=== PATIENT | male | born 1930 | race Caucasian/White ===

== ENCOUNTER 2019-06-03 14:52 | Inpatient (IN) | payer OTHER ==
--- NOTE | 2019-06-03 15:08 | ED Physician Documentation ---
PD HPI ABD PAIN - Stated complaint Stated Complaint: ABD PX - Chief complaint Chief Complaint: Abd Pain - History obtained from History obtained from: Patient - History of Present Illness Timing - onset: How many days ago (1-2) Timing - duration: Days (1-2) Timing - details: Gradual onset Quality: Cramping, Aching, Fullness/distended, Pain Location: All over / everywhere Radiation: Lower back. No: Chest, Upper back Improved by: No: Vomiting, Position Worsened by: Eating, Palpation. No: Breathing Associated symptoms: Nausea, Vomiting, Constipation, Loss of appetite. No: Fever, Diarrhea, Dysuria, Chest pain Similar symptoms before: Has not had sx before (He has had constipation in the past but no distention or belly pain like this associated with it before.) Review of Systems Constitutional: denies: Fever, Chills, Myalgias Nose: denies: Rhinorrhea / runny nose, Congestion Throat: denies: Sore throat Respiratory: denies: Cough GI: reports: Nausea, Vomiting (twice this morning), Constipation (for 7-10 days). denies: Diarrhea : denies: Dysuria, Frequency Neurologic: reports: Generalized weakness. denies: Focal weakness, Numbness, Near syncope, Altered mental status PD PAST MEDICAL HISTORY - Past Medical History Past Medical History: No Cardiovascular: None Respiratory: None Neuro: None Endocrine/Autoimmune: None GI: GERD - Present Medications Home Medications: Ambulatory Orders Medication Instructions Recorded Confirmed Alendronate [Fosamax] 1 tab UD 06/03/19 06/03/19 Aspirin Chewable [St Ravi 1 tab BID 06/03/19 06/03/19 Aspirin] Gabapentin 1 tab BID 06/03/19 06/03/19 Magnesium Hydroxide [Milk of 10 ml DAILY PRN 06/03/19 06/03/19 Magnesia] Omeprazole 1 tab DAILY 06/03/19 06/03/19 Senna [Senokot] 4 tab BID 06/03/19 06/03/19 Simvastatin [Zocor] 1 tab DAILY 06/03/19 06/03/19 Terazosin HCl 1 tab BID 06/03/19 06/03/19 - Allergies Allergies/Adverse Reactions: Allergies Allergy/AdvReac Type Severity Reaction Status Date / Time No Known Drug Allergies Allergy Verified 06/03/19 15:34 PD ED PE NORMAL - Vitals Vital signs reviewed: Yes - General General: Alert and oriented X 3, Well developed/nourished, Other (appears in pain, holding still. ) - HEENT HEENT: Pharynx benign - Neck Neck: Supple, no meningeal sign, No adenopathy - Cardiac Cardiac: RRR, No murmur - Respiratory Respiratory: Clear bilaterally - Abdomen Abdomen: No organomegaly, Other (Abdomen is generally distended with tenseness and hyperactive bowel sounds and some tympany to percussion. He is generally tender but more so in the lower abdomen. Rectal exam showed an empty vault.). No: Normal bowel sounds - Male Male : Other (normal genitalia) - Rectal Rectal: Other (empty vault) - Derm Derm: Normal color, Warm and dry - Extremities Extremities: No deformity, No tenderness to palpate - Neuro Neuro: Alert and oriented X 3, No motor deficit, Normal speech Results - Vitals Vitals: Vital Signs - 24 hr 06/03/19 06/03/19 06/03/19 15:01 15:26 15:40 Temperature 35.2 C L Heart Rate 52 L 69 43 L Respiratory 12 16 10 L Rate Blood Pressure 125/83 H 126/76 128/80 O2 Saturation 95 100 97 06/03/19 06/03/19 16:42 17:59 Temperature 36.4 C L Heart Rate 56 L 69 Respiratory 12 20 Rate Blood Pressure 132/76 H 157/80 H O2 Saturation 98 96 Oxygen O2 Source Nasal cannula - Labs Labs: Laboratory Tests 06/03/19 06/03/19 06/03/19 15:02 15:06 15:06 WBC 6.8 RBC 3.74 L Hgb 11.9 L Hct 34.8 L MCV 93.0 MCH 31.8 H MCHC 34.2 RDW 13.1 Plt Count 162 MPV 10.9 Neut # (Auto) 5.1 Lymph # (Auto) 1.3 L [place] # (Auto) 0.3 Eos # (Auto) 0.0 Baso # (Auto) 0.0 Absolute Nucleated RBC 0.00 Nucleated RBC % 0.0 Sodium 136 Potassium 3.0 L Chloride 98 L Carbon Dioxide 26 Anion Gap 12.0 BUN 15 Creatinine 0.9 Estimated GFR (MDRD) 80 L Glucose 165 H POC Whole Bld Glucose 176 H Lactic Acid Calcium 8.8 Magnesium 2.3 Total Bilirubin 0.9 AST 31 ALT 19 Alkaline Phosphatase 42 Total Protein 6.7 Albumin 4.2 Globulin 2.5 Albumin/Globulin Ratio 1.7 Lipase 18 L 06/03/19 15:06 WBC RBC Hgb Hct MCV MCH MCHC RDW Plt Count MPV Neut # (Auto) Lymph # (Auto) [place] # (Auto) Eos # (Auto) Baso # (Auto) Absolute Nucleated RBC Nucleated RBC % Sodium Potassium Chloride Carbon Dioxide Anion Gap BUN Creatinine Estimated GFR (MDRD) Glucose POC Whole Bld Glucose Lactic Acid 1.9 Calcium Magnesium Total Bilirubin AST ALT Alkaline Phosphatase Total Protein Albumin Globulin Albumin/Globulin Ratio Lipase - Rads (name of study) abd CT Radiology: Prelim report reviewed, Discussed with rads (Distended loop of bowel consistent with a sigmoid volvulus. There is significant amount of stool as well.), See rad report PD MEDICAL DECISION MAKING - ED course Complexity details: reviewed results, considered differential, d/w patient, d/w retail consultant (Dr. Painter, general surgery, who will see pt in the ER. ) Departure - Departure Disposition: 66 [facility] DC/Xfer Clinical Impression: Sigmoid volvulus, Hypokalemia Abdominal pain Qualifiers: Abdominal location: generalized Qualified Code(s): R10.84 - Generalized abdominal pain Condition: Stable Record reviewed to determine appropriate education?: Yes
[2019-06-03] MEDS ORDERED: MORPHINE 10 MG/ML VIAL IVP STA (15:27)
[2019-06-03] MEDS ORDERED: SODIUM CHLORIDE 0.9% 1,000 ML IV ONE ×2 (15:27→17:24)
[2019-06-03] MEDS ORDERED: ACETAMINOPHEN 1,000 MG/100 ML 100 ML IV STA (15:31)
[2019-06-03] MEDS ORDERED: IOVERSOL 320 100 ML VIAL IVP ONE ×2 (15:34→16:43)
[2019-06-03] MEDS: ONDANSETRON 4 MG/2 ML VIAL IVP STA ×2 (15:36→18:57)
[2019-06-03 15:38] LABS: BASOPHILS % (AUTO) 0.3 %; EOSINOPHILS % (AUTO) 0.6 %; HGB - HEMOGLOBIN 11.9 g/dL (14.0-18.0); LYMPHOCYTES # (AUTO) 1.3 10^3/uL (1.5-3.5); LYMPHOCYTES % (AUTO) 18.7 %; MEAN CORPUSCULAR HEMOGLOBIN 31.8 pg (27.0-31.0); MEAN CORPUSCULAR HGB CONC 34.2 g/dL (32.0-36.0); MEAN PLATELET VOLUME 10.9 fL (7.4-11.4); MONOCYTES # (AUTO) 0.3 10^3/uL (0.0-1.0); MONOCYTES % (AUTO) 4.6 %; NEUTROPHILS # (AUTO) 5.1 10^3/uL (1.5-6.6); NEUTROPHILS % (AUTO) 75.2 %; PLT - PLATELET COUNT 162 10^3/uL (130-450); RED BLOOD COUNT 3.74 10^6/uL (4.70-6.10); RED CELL DISTRIBUTION WIDTH 13.1 % (12.0-15.0); WHITE BLOOD COUNT 6.8 x10^3/uL (4.8-10.8)
[2019-06-03 15:48] LABS: ALBUMIN 4.2 g/dL (3.2-5.5); ALBUMIN/GLOBULIN RATIO 1.7 (1.0-2.2); BILIRUBIN,TOTAL 0.9 mg/dL (0.2-1.0); CALCIUM 8.8 mg/dL (8.5-10.3); CREATININE 0.9 mg/dL (0.6-1.2); MAGNESIUM 2.3 mg/dL (1.7-2.8); TOTAL PROTEIN 6.7 g/dL (6.7-8.2)
--- NOTE | 2019-06-03 17:21 | CT Report ---
Reason: abd pain and distension for few days Procedure Date: 06/03/2019 Accession Number: [id number] / [id number] Procedure: CT - Abdomen/Pelvis W CPT Code: Final Report FULL RESULT: EXAM: CT ABDOMEN AND PELVIS EXAM DATE: 06/03/2019 04:40 PM. CLINICAL HISTORY: Abdomen pain and distention for a few days. COMPARISONS: None. TECHNIQUE: Routine helical CT imaging was performed through the abdomen and pelvis. IV contrast: OPTIRAY 320. Enteric contrast: No. Reconstructions: Coronal and sagittal. In accordance with CT protocol optimization, one or more of the following dose reduction techniques were utilized for this exam: automated exposure control, adjustment of mA and/or KV based on patient size, or use of iterative reconstructive technique. FINDINGS: Lung bases: A small of fluid is seen in the distal esophagus. Liver: No focal liver lesions are seen. Gallbladder: Unremarkable. Bile ducts: Unremarkable. Pancreas: Moderate diffuse atrophy. Spleen: Unremarkable. Adrenals: Unremarkable. Kidneys: Left posterior renal cyst measures 7.2 cm. A couple of small hypodensities left kidney probably renal cysts. 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 Small right upper pole renal cyst. No hydronephrosis. Bowel: Sigmoid volvulus. Redundant gas-filled dilated sigmoid extending up into the upper abdomen dilated to 8.8 cm and there is a moderate amount of adjacent stranding. No definite wall thickening or pneumatosis is seen. Transition from dilated to decompressed colon is seen on axial image 62 where there is a mild swirled pattern. Moderate to large amount of stool is seen in the left side of the colon and transverse colon. Small free fluid in the pelvis. No evidence for free air. No evidence for bowel perforation. Presacral edema. No dilated small bowel loops. Pelvis: Mild lobular contour of the prostate. Metallic prostate seed implants. No acute vascular findings are seen. The superior mesenteric artery appears patent. Ectatic suprarenal abdominal aorta measuring 2.9 cm. IMPRESSION: 1. Sigmoid volvulus. Moderate amount of stranding adjacent to the sigmoid colon, could represent signs of colon and mesenteric ischemia versus congestion. No definite colonic wall thickening or pneumatosis is seen. No free air is seen. Small free fluid in the pelvis. Moderate to large amount of stool in the colon on the left side and in the transverse colon. 2. Presacral edema. See the remaining exam findings as above. RADIA The critical result notification system was initiated by Dr. Lyndsay Muller at 05:10 PM on 06/03/2019. The above critical result findings were discussed with [facility] [place] by Dr. Lyndsay Muller at 05:14 PM on 06/03/2019.
[2019-06-03] MEDS ORDERED: MORPHINE 2 MG/ML CARPUJECT IVP STA ×2 (17:24→18:44)
[2019-06-03] MEDS ORDERED: POTASSIUM CHLOR 10 MEQ/100 ML 10 MEQ/100 ML BAG IV ONE (18:46)
[2019-06-03] MEDS ORDERED: ONDANSETRON 4 MG/2 ML VIAL ONE (18:55)
[2019-06-03] MEDS ORDERED: ONDANSETRON 4 MG/2 ML VIAL IVP STA (19:13)
[2019-06-03] MEDS ORDERED: ceFAZolin 2 GM in SODIUM CHLORIDE 0.9% 100ML 100 ML IV STA (19:33)
[2019-06-03] MEDS ORDERED: LACTATED RINGERS 1,000 ML IV STA (19:40)
--- NOTE | 2019-06-03 19:40 | HISTORY & PHYSICAL EXAMINATION ---
Chief Complaint - Chief Complaint Chief Complaint: diffuse abdominal pain Abdominal Pain HPI - History Obtained From Records Reviewed: RN notes reviewed History obtained from: Patient, Family ( named Lea) Exam limitations: No limitations - History of Present Illness Severity at the worst: Moderate Pain Quality: Aching, Cramping Context-Pain started w/: Other (Patient reports 5 year heistory of progressive c onsitpation has been on a bowel regimine, but not uncommon to go 7-8 days without a bowel movement. This time it was 10 days and last 24 hours no gas and increasing bloating with increased pain) Timing: Gradual onset Duration: Days: (10) Improved with: Nothing Worsened by: Nothing Associated symptoms: Nausea, General Weakness PMH/PSH - Past Medical History Cardiovascular: positive: None Respiratory: positive: None Neuro: positive: None Endocrine/Autoimmune: positive: None GI: positive: GERD, Chronic constipation : positive: Benign prostate hypertrophy, Other (history of prostate cancer on hormone modulation therapy) HEENT: positive: Chronic hearing loss MRSA Hx?: No Other Past Medical History: Prostate CA Social & Family Hx - Living Situation Living Situation: With family - Social History Does the pt smoke?: No Smoking Status: Never smoker Does the pt drink ETOH?: Yes ETOH Use: Liquor - Family History Family History Comment/Other: non contributory Meds/Allgy - Home Medications Home Medications: Ambulatory Orders Medication Instructions Recorded Confirmed Alendronate [Fosamax] 1 tab UD 06/03/19 06/03/19 Aspirin Chewable [St Ravi 1 tab BID 06/03/19 06/03/19 Aspirin] Gabapentin 1 tab BID 06/03/19 06/03/19 Magnesium Hydroxide [Milk of 10 ml DAILY PRN 06/03/19 06/03/19 Magnesia] Omeprazole 1 tab DAILY 06/03/19 06/03/19 Senna [Senokot] 4 tab BID 06/03/19 06/03/19 Simvastatin [Zocor] 1 tab DAILY 06/03/19 06/03/19 Terazosin HCl 1 tab BID 06/03/19 06/03/19 - Allergies Allergies/Adverse Reactions: Allergies Allergy/AdvReac Type Severity Reaction Status Date / Time No Known Drug Allergies Allergy Verified 06/03/19 15:34 Review of Systems - Cardiovascular Cariovascular: denies: Irregular heart rate, Chest pain - Respiratory Respiratory: denies: Cough, Sputum production, Wheezing - Gastrointestinal Gastrointestinal: reports: Abdominal pain, Abdominal distention, Constipation, Nausea, Reflux/heartburn, Bloating - Genitourinary Genitourinary: reports: Frequency - Musculoskeletal Musculoskeletal: denies: Muscle pain - Integumentary Integumentary: denies: Rash - Neurological Neurological: reports: General weakness - All Other Systems All Other Systems: reports: Reviewed and negative Exam - Vital Signs Vital Signs: Vital Signs x48h Temp Pulse Resp BP Pulse Ox 06/03/19 17:59 69 20 157/80 H 96 06/03/19 16:42 36.4 C L 56 L 12 132/76 H 98 06/03/19 15:40 43 L 10 L 128/80 97 06/03/19 15:26 69 16 126/76 100 06/03/19 15:01 35.2 C L 52 L 12 125/83 H 95 - Physical Exam General Appearance: positive: Mild distress Eyes Bilateral: positive: Normal inspection Neck: positive: Nml inspection Cardiovascular: positive: Regular rate & rhythm Abdomen: positive: Tenderness, Guarding, Abnml bowel sounds, Other (markedly distended). negative: Rebound Skin: positive: Warm, Dry Extremities: positive: Non-tender Neurologic/Psychiatric: positive: Oriented x3 Results - Lab Results Fish Bones: 06/03/19 15:06 06/03/19 15:06 Other Lab Results: Lab Results x24hrs 06/03/19 06/03/19 06/03/19 Range/Units 15:06 15:06 15:06 WBC 6.8 (4.8-10.8) x10^3/uL RBC 3.74 L (4.70-6.10) 10^6/uL Hgb 11.9 L (14.0-18.0) g/dL Hct 34.8 L (42.0-52.0) % MCV 93.0 (80.0-94.0) fL MCH 31.8 H (27.0-31.0) pg MCHC 34.2 (32.0-36.0) g/dL RDW 13.1 (12.0-15.0) % Plt Count 162 (130-450) 10^3/uL MPV 10.9 (7.4-11.4) fL Neut # (Auto) 5.1 (1.5-6.6) 10^3/uL Lymph # (Auto) 1.3 L (1.5-3.5) 10^3/uL [place] # (Auto) 0.3 (0.0-1.0) 10^3/uL Eos # (Auto) 0.0 (0.0-0.7) 10^3/uL Baso # (Auto) 0.0 (0.0-0.1) 10^3/uL Absolute Nucleated RBC 0.00 x10^3/uL Nucleated RBC % 0.0 /100WBC Sodium 136 (135-145) mmol/L Potassium 3.0 L (3.5-5.0) mmol/L Chloride 98 L (101-111) mmol/L Carbon Dioxide 26 (21-32) mmol/L Anion Gap 12.0 (6-13) BUN 15 (6-20) mg/dL Creatinine 0.9 (0.6-1.2) mg/dL Estimated GFR (MDRD) 80 L (>89) Glucose 165 H (70-100) mg/dL POC Whole Bld Glucose (70 - 100) mg/dL Lactic Acid 1.9 (0.5-2.2) mmol/L Calcium 8.8 (8.5-10.3) mg/dL Magnesium 2.3 (1.7-2.8) mg/dL Total Bilirubin 0.9 (0.2-1.0) mg/dL AST 31 (10-42) IU/L ALT 19 (10-60) IU/L Alkaline Phosphatase 42 (42-121) IU/L Total Protein 6.7 (6.7-8.2) g/dL Albumin 4.2 (3.2-5.5) g/dL Globulin 2.5 (2.1-4.2) g/dL Albumin/Globulin Ratio 1.7 (1.0-2.2) Lipase 18 L (22-51) U/L 03/25/20 Range/Units 15:02 WBC (4.8-10.8) x10^3/uL RBC (4.70-6.10) 10^6/uL Hgb (14.0-18.0) g/dL Hct (42.0-52.0) % MCV (80.0-94.0) fL MCH (27.0-31.0) pg MCHC (32.0-36.0) g/dL RDW (12.0-15.0) % Plt Count (130-450) 10^3/uL MPV (7.4-11.4) fL Neut # (Auto) (1.5-6.6) 10^3/uL Lymph # (Auto) (1.5-3.5) 10^3/uL [place] # (Auto) (0.0-1.0) 10^3/uL Eos # (Auto) (0.0-0.7) 10^3/uL Baso # (Auto) (0.0-0.1) 10^3/uL Absolute Nucleated RBC x10^3/uL Nucleated RBC % /100WBC Sodium (135-145) mmol/L Potassium (3.5-5.0) mmol/L Chloride (101-111) mmol/L Carbon Dioxide (21-32) mmol/L Anion Gap (6-13) BUN (6-20) mg/dL Creatinine (0.6-1.2) mg/dL Estimated GFR (MDRD) (>89) Glucose (70-100) mg/dL POC Whole Bld Glucose 176 H (70 - 100) mg/dL Lactic Acid (0.5-2.2) mmol/L Calcium (8.5-10.3) mg/dL Magnesium (1.7-2.8) mg/dL Total Bilirubin (0.2-1.0) mg/dL AST (10-42) IU/L ALT (10-60) IU/L Alkaline Phosphatase (42-121) IU/L Total Protein (6.7-8.2) g/dL Albumin (3.2-5.5) g/dL Globulin (2.1-4.2) g/dL Albumin/Globulin Ratio (1.0-2.2) Lipase (22-51) U/L - Diagnostic Imaging Results Diagnostic Imaging Results Comments: CT scan reviewed and discussed with radiologist agree with assessment of sigmoid volvulus with large amount of stool Impression/Plan - Problem List Problem List: 88 yo male with sigmoid volvulus. We discussed in detail and with drawings the normal anatomy and physiology and then we discussed the pathophysiology and possible etiologies of sigmoid volvulus. We discussed his radiologic and clinical findings and general treatment options. We discussed the lack of on site radiologist to attempt enema, we discussed transfer vrs proceeding with surgery. Colonoscopy and enema success is low especially given the extensive amount of stool present. After discussing theses options in detail and the risks, benefits, complications and success rates of each and discussing the surgery options in detail including possible open, possible need for resection, possible need for ostomy and re-operation, possible leak and anesthesia risk he has elected to proceed here with surgery. His questions and his Lea's questions (by phone) were addressed and answered to their satisfaction. They understand steps of surgical decision making will occur intra operative and they agree with this plan and he desires to proceed. Consent for exploratory laparoscopy possible open, possible colectomy, possible colostomy obtained. Core Measures - DVT/VTE - Prophylaxis VTE/DVT Device ordered at admit?: No
[2019-06-03 19:53] LABS: BILIRUBIN,URINE NEGATIVE (NEGATIVE); GLUCOSE, URINE (UA) NEGATIVE (NEGATIVE); KETONES,URINE (UA) 15 mg/dL (NEGATIVE); LEUKOCYTE ESTERASE, URINE NEGATIVE (NEGATIVE); NITRITE,URINE NEGATIVE (NEGATIVE); OCCULT BLOOD,URINE NEGATIVE (NEGATIVE); PH,URINE 7.5 PH (5.0-7.5); PROTEIN,URINE NEGATIVE (NEGATIVE); UROBILINOGEN,URINE 0.2 (NORMAL) E.U./dL (NORMAL)
[2019-06-03 19:54] LABS: CLARITY,URINE CLEAR (CLEAR)
[2019-06-03] MEDS ORDERED: metroNIDAZOLE 500 MG/100 ML 500 MG/100 ML BAG IV SCH ×2 (20:00→23:45)
--- NOTE | 2019-06-03 20:02 | ANESTHESIA ---
Pre-Anesthesia VS, & Labs - Diagnosis sigmoid volvus - Procedure Laparoscopic sigmoidectomy Vital Signs: Temp Pulse Resp BP Pulse Ox 36.4 C L 69 20 157/80 H 96 06/03/19 16:42 06/03/19 17:59 06/03/19 17:59 06/03/19 17:59 06/03/19 17:59 Height 6 ft Weight (kg) 83.915 kg Body Mass Index 25.0 - NPO >8 hours - Lab Results Current Lab Results: Laboratory Tests 06/03/19 15:06: Lactic Acid 1.9 06/03/19 15:06: Sodium 136, Potassium 3.0 L, Chloride 98 L, Carbon Dioxide 26, Anion Gap 12.0, BUN 15, Creatinine 0.9, Estimated GFR (MDRD) 80 L, Glucose 165 H , Calcium 8.8, Magnesium 2.3, Total Bilirubin 0.9, AST 31, ALT 19, Alkaline Phosphatase 42, Total Protein 6.7, Albumin 4.2, Globulin 2.5, Albumin/Globulin Ratio 1.7, Lipase 18 L 06/03/19 15:06: WBC 6.8, RBC 3.74 L, Hgb 11.9 L, Hct 34.8 L, MCV 93.0, MCH 31.8 H, MCHC 34.2, RDW 13.1, Plt Count 162, MPV 10.9, Neut # (Auto) 5.1, Lymph # (Auto) 1.3 L, [place] # (Auto) 0.3, Eos # (Auto) 0.0, Baso # (Auto) 0.0, Absolute Nucleated RBC 0.00, Nucleated RBC % 0.0 06/03/19 15:02: POC Whole Bld Glucose 176 H Lab results reviewed: Yes Fish Bones: 06/03/19 15:06 06/03/19 15:06 Home Medications and Allergies Home Medications: Ambulatory Orders Alendronate [Fosamax] 1 tab UD 06/03/19 Aspirin Chewable [St Ravi Aspirin] 1 tab BID 06/03/19 Gabapentin 1 tab BID 06/03/19 Magnesium Hydroxide [Milk of Magnesia] 10 ml DAILY PRN 06/03/19 Omeprazole 1 tab DAILY 06/03/19 Senna [Senokot] 4 tab BID 06/03/19 Simvastatin [Zocor] 1 tab DAILY 06/03/19 Terazosin HCl 1 tab BID 06/03/19 Active Medications Cefazolin Sodium 2 gm/ Sodium (Chloride) 100 mls @ 200 mls/hr IV ONCE STA Stop: 06/03/19 20:02 Last Admin: 06/03/19 19:43 Dose: 200 mls/hr Metronidazole (Flagyl 500 Mg/100 Ml) 500 mg in 100 mls @ 100 mls/hr IV Q8H CHRISTIAN Alendronate [Fosamax] 1 tab UD 06/03/19 Aspirin Chewable [St Ravi Aspirin] 1 tab BID 06/03/19 Gabapentin 1 tab BID 06/03/19 Magnesium Hydroxide [Milk of Magnesia] 10 ml DAILY PRN 06/03/19 Omeprazole 1 tab DAILY 06/03/19 Senna [Senokot] 4 tab BID 06/03/19 Simvastatin [Zocor] 1 tab DAILY 06/03/19 Terazosin HCl 1 tab BID 06/03/19 Allergies/Adverse Reactions: Allergies Allergy/AdvReac Type Severity Reaction Status Date / Time No Known Drug Allergies Allergy Verified 06/03/19 15:34 Anes History & Medical History - Anesthetic History Anesthesia Complications: reports: No previous complications Family history of Anesthesia Complications: Denies Family history of Malignant Hyperthermia: Denies - Medical History Cardiovascular: reports: None Pulmonary: reports: None Gastrointestinal: reports: GERD, Chronic constipation Urinary: reports: Benign prostate hypertrophy, Other (history of prostate cancer on hormone modulation therapy) Neuro: reports: None Musculoskeletal: reports: None Endocrine/Autoimmune: reports: None Blood Disorders: reports: None Skin: reports: None Smoking Status: Never smoker Psychosocial: reports: No issues indicated Other Past Medical History: Prostate CA - Surgical History General: Other (hernia repair) Results - EKG Results EKG Comparison: Reviewed EKG Exam General: Alert, Oriented x3, Cooperative, No acute distress Dental: Dentures full Upper, Dentures full Lower Mouth Openin Fingerbreadth Mallampati classification: II Thyromental Distance: 4-6 cm Respiratory: Lungs clear, Normal breath sounds, No respiratory distress, No accessory muscle use Cardiovascular: Regular rate, Normal S1, Normal S2 Mental/Cognitive Status: Alert/Oriented X3, Normal for patient Plan Anesthesia Type: General Consent for Procedure(s) Verified and Reviewed: Yes Code Status: Attempt Resuscitation ASA classification: 2-Mild systemic disease Is this case an emergency?: Yes
[2019-06-03] MEDS ORDERED: LIDOCAINE 1%-EPI 1:100000 20 ML MDV ONE (20:16)
[2019-06-03] MEDS ORDERED: SUCCINYLCHOLINE 200 MG/10 ML VIAL IVP ONE (20:32)
[2019-06-03] MEDS ORDERED: LACTATED RINGERS 1,000 ML IV ONE ×2 (20:32→21:59)
[2019-06-03] MEDS ORDERED: fentaNYL 250 MCG/5 ML VIAL IVP ONE (20:32)
[2019-06-03] MEDS ORDERED: GLYCOPYRROLATE 1 MG/5 ML VIAL IVP ONE (20:32)
[2019-06-03] MEDS ORDERED: ONDANSETRON 4 MG/2 ML VIAL IVP ONE (20:32)
[2019-06-03] MEDS ORDERED: ROCURONIUM 50 MG/5 ML VIAL IVP ONE (20:32)
[2019-06-03] MEDS ORDERED: ePHEDrine 50 MG/ML VIAL IVP ONE (20:32)
[2019-06-03] MEDS ORDERED: PROPOFOL 200 MG/20 ML VIAL IVP ONE (20:32)
[2019-06-03] MEDS ORDERED: LIDOCAINE 1%-EPI 1:100000 20 ML MDV SUBQ ONE (21:03)
[2019-06-03] MEDS ORDERED: SUGAMMADEX 200 MG/2 ML VIAL IVP ONE (21:59)
[2019-06-03] MEDS ORDERED: ACETAMINOPHEN 1,000 MG/100 ML 100 ML IV ONE (23:19)
--- NOTE | 2019-06-03 23:28 | OPERATIVE REPORT ---
Operative Report - General Procedure Date: 06/03/19 Pre-Op Diagnosis: sigmoid volvulus Procedure Performed: exploratory laparoscopy, conversion to laparotomy, sigmoidectomy with end colostomy Post Op Diagnosis: same - Procedure Note Primary Surgeon: Georgia Painter MD Anesthesia Technique: General ET tube Pathology: sigmoid colon IV Fluids (mL): 1,450 Estimated Blood Loss (mL): 100 Urine Output (mL): 550 Indications: Patient is a very pleasant 88 yo with acute colon obstruction due to sigmoid volvulus on CT scan Findings: markedly dilated distal colon to 15 cm therefore elected to preform Bhakta's procedure and leave end colostomy Complications: none - Other Other Information/Narrative: The patient was taken back to the operating room and placed in the supine position. He was placed under anesthesia and a graves catheter was placed. He was then prepped and draped in a sterile fashion. A formal timeout was held according to hospital regulations. Local anesthesia was infused in the infraumbilical space and vertical incision was made. Dissection with s retractors down the the fascia was done. The fascia was incised with 15 blade and the peritoneum was entered bluntly with finger dissection. 12 mm port was then inserted and pneumo peritoneum was created and the abdomen inspected. A long large and markedly dilated portion of the sigmoid colon was visualized and it was immediately evident that resection would be required and given the level of dilation I elected to convert to open. The vertical incision was extended in the midline in the usual fashion. The sigmoid colon was brought out through the incisions and the volvulus was released. No signs of stragulation were present but the distal portion remained markedly dilated. Proximally there was a large amount of stool. A healthy portion on the proximal side was identified and a window was created in the mesentery near the bowel wall. The bowel was dived with a YARA stapler. The mesentery was sequential divided using clamp clamp cut tie technique distally removing the redundant colon which was about 24 inches. The bowel was unable to be decompressed easily distally, no mass or obstruction was palpated, but given the level of mismatch in an 88 yo I felt it was safest to preformed a bhakta's and the distal transaction with a YARA stapler was done at the level of the sacral prominence. The remaining mesentery was transected and the specimen was removed without spillage. The abdomen was irrigated and hemostasis was confirmed. The proximal bowel was inspected and a site for the colostomy was chosen. A 1.5 cm circular skin resection with underlying fat was removed down to the fascia. A ccruciate incision of the anterior fascia was created the muscled was retracted and the posterior fascial was incised. The proximal end was brought out through the site and anchored to the anterior abdominal wall with 3-0 vicryl sutures. Seprafilm was then placed underlying the incision and into the pelvis. THe midline incision was closed with O- PDS looped running from inferior to superior and the skin was closed with 4-0 monocryl running. The wound was cleaned and dried and sterile dressing was placed. The ostomy secured to the anterior fascia and then was opened by cutting away the suture line and secured to the skin in the usual fashion. Ostomy bag was placed over the site. THe draped were removed and the patient was awaken and extubated in the OR and transferred to recovery without complication. All sponge, sharp and instrument counts were correct.
[2019-06-03] MEDS ORDERED: ceFAZolin 2 GM in SODIUM CHLORIDE 0.9% 100ML 100 ML IV SCH (23:45)
[2019-06-04] MEDS: LACTATED RINGERS 1,000 ML IV SCH ×2 (00:33→06:19)
[2019-06-04] MEDS: SODIUM CHLORIDE FLUSH 0.9% 10 ML SYRINGE IVP PRN ×4 (00:35→12:10)
[2019-06-04] MEDS: PHENOL THROAT SPRAY 177 ML MM PRN ×5 (01:59→13:09)
[2019-06-04] MEDS: HYDROmorphone 0.5 MG/0.5 ML SYRINGE IVP PRN ×5 (02:01→12:10)
[2019-06-04] MEDS: ceFAZolin 2 GM in SODIUM CHLORIDE 0.9% 100ML 100 ML IV SCH ×2 (04:09→12:10)
[2019-06-04] MEDS: metroNIDAZOLE 500 MG/100 ML 500 MG/100 ML BAG IV SCH ×2 (05:21→13:10)
[2019-06-04] MEDS: PANTOPRAZOLE 40 MG VIAL IVP SCH (06:14)
[2019-06-04] MEDS: ENOXAPARIN 40 MG/0.4 ML SYRINGE SUBQ SCH (08:22)
[2019-06-04 08:39] LABS: ALBUMIN 3.4 g/dL (3.2-5.5); ALBUMIN/GLOBULIN RATIO 1.6 (1.0-2.2); BILIRUBIN,TOTAL 0.9 mg/dL (0.2-1.0); CALCIUM 7.9 mg/dL (8.5-10.3); CREATININE 0.7 mg/dL (0.6-1.2); MAGNESIUM 2.2 mg/dL (1.7-2.8); PHOSPHORUS 4.3 mg/dL (2.5-4.6); TOTAL PROTEIN 5.5 g/dL (6.7-8.2)
[2019-06-04 08:40] LABS: BASOPHILS % (AUTO) 0.3 %; EOSINOPHILS # (AUTO) 0.3 10^3/uL (0.0-0.7); EOSINOPHILS % (AUTO) 2.8 %; HGB - HEMOGLOBIN 11.4 g/dL (14.0-18.0); LYMPHOCYTES # (AUTO) 0.9 10^3/uL (1.5-3.5); LYMPHOCYTES % (AUTO) 9.4 %; MEAN CORPUSCULAR HEMOGLOBIN 32.4 pg (27.0-31.0); MEAN CORPUSCULAR HGB CONC 34.2 g/dL (32.0-36.0); MEAN CORPUSCULAR VOLUME 94.6 fL (80.0-94.0); MEAN PLATELET VOLUME 10.7 fL (7.4-11.4); MONOCYTES # (AUTO) 0.4 10^3/uL (0.0-1.0); NEUTROPHILS # (AUTO) 8.2 10^3/uL (1.5-6.6); NEUTROPHILS % (AUTO) 83.2 %; PLT - PLATELET COUNT 156 10^3/uL (130-450); RED BLOOD COUNT 3.52 10^6/uL (4.70-6.10); RED CELL DISTRIBUTION WIDTH 13.5 % (12.0-15.0); WHITE BLOOD COUNT 9.9 x10^3/uL (4.8-10.8)
--- NOTE | 2019-06-04 10:34 | PHARMACY PROGRESS NOTE ---
- Best Possible Medication History Admit Date and Time: 06/03/191922 Processed by: Nursing Medication History completed: Yes Corrected med list to reflect mg instead of # of tabs; med list completed by nursing As the person ultimately responsible for medication therapy, providers are able to order a medication from an existing home medication list in [facility] via the "Reconcile Routine" prior to Confirmation of that medication by client support representative. Such practice is discouraged except when the physician, in their clinical judgment, deems that a medical need exists for a medication without regard to previous use.
--- NOTE | 2019-06-04 11:28 | PROVIDER PROGRESS NOTE ---
Subjective - General Admit Date: 06/03/19 Procedure Date: 06/03/19 Post Op Days: 1 - Review of Systems Wound/Incisions: positive: Dressing dry and intact Drain Type: ostomy Approximate mls Output: NG tube- 900 cc fecal material output General: positive: Fatigue Pulmonary: positive: Cough (mild production will monitor) All Other Systems: positive: Reviewed and negative Objective - Patient Data Vital Signs: Vital Signs x48h Temp Pulse Resp BP Pulse Ox 06/04/19 08:39 36.6 C 68 18 107/52 L 95 06/04/19 05:18 36.7 C 74 17 117/59 L 98 Weight: Weight 06/02/19 06/03/19 06/04/19 23:59 23:59 23:59 Weight (kg) 83.915 kg 80.5 kg Intake & Output: Intake and Output Totals x24h 06/02/19 06/03/19 06/04/19 23:59 23:59 23:59 Intake Total 2300 603.333 Output Total 975 Balance 2300 -371.667 - Lab Results Lab Results: 06/04/19 08:14 06/04/19 08:14 Other Lab Results: Lab Results x24hrs 06/04/19 06/04/19 06/04/19 Range/Units 08:14 08:14 07:56 WBC 9.9 (4.8-10.8) x10^3/uL RBC 3.52 L (4.70-6.10) 10^6/uL Hgb 11.4 L (14.0-18.0) g/dL Hct 33.3 L (42.0-52.0) % MCV 94.6 H (80.0-94.0) fL MCH 32.4 H (27.0-31.0) pg MCHC 34.2 (32.0-36.0) g/dL RDW 13.5 (12.0-15.0) % Plt Count 156 (130-450) 10^3/uL MPV 10.7 (7.4-11.4) fL Neut # (Auto) 8.2 H (1.5-6.6) 10^3/uL Lymph # (Auto) 0.9 L (1.5-3.5) 10^3/uL [place] # (Auto) 0.4 (0.0-1.0) 10^3/uL Eos # (Auto) 0.3 (0.0-0.7) 10^3/uL Baso # (Auto) 0.0 (0.0-0.1) 10^3/uL Absolute Nucleated RBC 0.00 x10^3/uL Nucleated RBC % 0.0 /100WBC Sodium 135 (135-145) mmol/L Potassium 3.3 L (3.5-5.0) mmol/L Chloride 98 L (101-111) mmol/L Carbon Dioxide 27 (21-32) mmol/L Anion Gap 10.0 (6-13) BUN 14 (6-20) mg/dL Creatinine 0.7 (0.6-1.2) mg/dL Estimated GFR (MDRD) 107 (>89) Glucose 114 H (70-100) mg/dL POC Whole Bld Glucose 97 (70 - 100) mg/dL Lactic Acid (0.5-2.2) mmol/L Calcium 7.9 L (8.5-10.3) mg/dL Phosphorus 4.3 (2.5-4.6) mg/dL Magnesium 2.2 (1.7-2.8) mg/dL Total Bilirubin 0.9 (0.2-1.0) mg/dL AST 23 (10-42) IU/L ALT 17 (10-60) IU/L Alkaline Phosphatase 35 L (42-121) IU/L Total Protein 5.5 L (6.7-8.2) g/dL Albumin 3.4 (3.2-5.5) g/dL Globulin 2.1 (2.1-4.2) g/dL Albumin/Globulin Ratio 1.6 (1.0-2.2) Lipase (22-51) U/L Urine Color Urine Clarity (CLEAR) Urine pH (5.0-7.5) PH Ur Specific [place] (1.002-1.030) Urine Protein (NEGATIVE) mg/dL Urine Glucose (UA) (NEGATIVE) mg/dL Urine Ketones (NEGATIVE) mg/dL Urine Occult Blood (NEGATIVE) Urine Nitrite (NEGATIVE) Urine Bilirubin (NEGATIVE) Urine Urobilinogen (NORMAL) E.U./dL Ur Leukocyte Esterase (NEGATIVE) Ur Microscopic Review Urine Culture Comments 0306/03/19 06/03/19 Range/Units 19:35 15:06 15:06 WBC (4.8-10.8) x10^3/uL RBC (4.70-6.10) 10^6/uL Hgb (14.0-18.0) g/dL Hct (42.0-52.0) % MCV (80.0-94.0) fL MCH (27.0-31.0) pg MCHC (32.0-36.0) g/dL RDW (12.0-15.0) % Plt Count (130-450) 10^3/uL MPV (7.4-11.4) fL Neut # (Auto) (1.5-6.6) 10^3/uL Lymph # (Auto) (1.5-3.5) 10^3/uL [place] # (Auto) (0.0-1.0) 10^3/uL Eos # (Auto) (0.0-0.7) 10^3/uL Baso # (Auto) (0.0-0.1) 10^3/uL Absolute Nucleated RBC x10^3/uL Nucleated RBC % /100WBC Sodium 136 (135-145) mmol/L Potassium 3.0 L (3.5-5.0) mmol/L Chloride 98 L (101-111) mmol/L Carbon Dioxide 26 (21-32) mmol/L Anion Gap 12.0 (6-13) BUN 15 (6-20) mg/dL Creatinine 0.9 (0.6-1.2) mg/dL Estimated GFR (MDRD) 80 L (>89) Glucose 165 H (70-100) mg/dL POC Whole Bld Glucose (70 - 100) mg/dL Lactic Acid 1.9 (0.5-2.2) mmol/L Calcium 8.8 (8.5-10.3) mg/dL Phosphorus (2.5-4.6) mg/dL Magnesium 2.3 (1.7-2.8) mg/dL Total Bilirubin 0.9 (0.2-1.0) mg/dL AST 31 (10-42) IU/L ALT 19 (10-60) IU/L Alkaline Phosphatase 42 (42-121) IU/L Total Protein 6.7 (6.7-8.2) g/dL Albumin 4.2 (3.2-5.5) g/dL Globulin 2.5 (2.1-4.2) g/dL Albumin/Globulin Ratio 1.7 (1.0-2.2) Lipase 18 L (22-51) U/L Urine Color YELLOW Urine Clarity CLEAR (CLEAR) Urine pH 7.5 (5.0-7.5) PH Ur Specific [place] 1.010 (1.002-1.030) Urine Protein NEGATIVE (NEGATIVE) mg/dL Urine Glucose (UA) NEGATIVE (NEGATIVE) mg/dL Urine Ketones 15 H (NEGATIVE) mg/dL Urine Occult Blood NEGATIVE (NEGATIVE) Urine Nitrite NEGATIVE (NEGATIVE) Urine Bilirubin NEGATIVE (NEGATIVE) Urine Urobilinogen 0.2 (NORMAL) (NORMAL) E.U./dL Ur Leukocyte Esterase NEGATIVE (NEGATIVE) Ur Microscopic Review NOT INDICATED Urine Culture Comments NOT INDICATED 06/03/19 06/03/19 Range/Units 15:06 15:02 WBC 6.8 (4.8-10.8) x10^3/uL RBC 3.74 L (4.70-6.10) 10^6/uL Hgb 11.9 L (14.0-18.0) g/dL Hct 34.8 L (42.0-52.0) % MCV 93.0 (80.0-94.0) fL MCH 31.8 H (27.0-31.0) pg MCHC 34.2 (32.0-36.0) g/dL RDW 13.1 (12.0-15.0) % Plt Count 162 (130-450) 10^3/uL MPV 10.9 (7.4-11.4) fL Neut # (Auto) 5.1 (1.5-6.6) 10^3/uL Lymph # (Auto) 1.3 L (1.5-3.5) 10^3/uL [place] # (Auto) 0.3 (0.0-1.0) 10^3/uL Eos # (Auto) 0.0 (0.0-0.7) 10^3/uL Baso # (Auto) 0.0 (0.0-0.1) 10^3/uL Absolute Nucleated RBC 0.00 x10^3/uL Nucleated RBC % 0.0 /100WBC Sodium (135-145) mmol/L Potassium (3.5-5.0) mmol/L Chloride (101-111) mmol/L Carbon Dioxide (21-32) mmol/L Anion Gap (6-13) BUN (6-20) mg/dL Creatinine (0.6-1.2) mg/dL Estimated GFR (MDRD) (>89) Glucose (70-100) mg/dL POC Whole Bld Glucose 176 H (70 - 100) mg/dL Lactic Acid (0.5-2.2) mmol/L Calcium (8.5-10.3) mg/dL Phosphorus (2.5-4.6) mg/dL Magnesium (1.7-2.8) mg/dL Total Bilirubin (0.2-1.0) mg/dL AST (10-42) IU/L ALT (10-60) IU/L Alkaline Phosphatase (42-121) IU/L Total Protein (6.7-8.2) g/dL Albumin (3.2-5.5) g/dL Globulin (2.1-4.2) g/dL Albumin/Globulin Ratio (1.0-2.2) Lipase (22-51) U/L Urine Color Urine Clarity (CLEAR) Urine pH (5.0-7.5) PH Ur Specific [place] (1.002-1.030) Urine Protein (NEGATIVE) mg/dL Urine Glucose (UA) (NEGATIVE) mg/dL Urine Ketones (NEGATIVE) mg/dL Urine Occult Blood (NEGATIVE) Urine Nitrite (NEGATIVE) Urine Bilirubin (NEGATIVE) Urine Urobilinogen (NORMAL) E.U./dL Ur Leukocyte Esterase (NEGATIVE) Ur Microscopic Review Urine Culture Comments - Current Medications Current Medications: Current Medications Generic Name Dose Route Start Last Admin Trade Name Freq PRN Reason Stop Dose Admin Enoxaparin Sodium 40 mg 06/04/19 09:00 06/04/19 08:22 Lovenox SUBQ 40 mg DAILY CHRISTIAN Administration Hydromorphone HCl 0.5 mg 06/03/19 23:19 06/04/19 10:36 Dilaudid Inj Syringe IVP 0.5 mg Q2H PRN Administration PAIN Lactated Ringer's 1,000 mls @ 50 mls/hr 06/03/19 23:45 06/04/19 06:19 Lr IV 50 mls/hr .Q20H CHRISTIAN Administration Cefazolin Sodium 2 gm/ Sodium 100 mls @ 200 mls/hr 06/04/19 04:00 06/04/19 04:40 Chloride IV 06/04/19 12:29 Infused Q8H CHRISTIAN Infusion Metronidazole 500 mg in 100 mls @ 100 mls/hr 06/04/19 05:00 06/04/19 06:26 Flagyl 500 Mg/100 Ml IV 06/04/19 13:59 Infused Q8H CHRISTIAN Infusion Pantoprazole Sodium 40 mg 06/04/19 07:00 06/04/19 06:14 Protonix IVP 40 mg QDAC CHRISTIAN Administration Phenol/Menthol 1 sprays 06/03/19 23:19 06/04/19 10:44 Chloraseptic MM 1 sprays Q2H PRN Administration Mouth Sore Pain Sodium Chloride 10 ml 06/03/19 23:19 06/04/19 06:18 Normal Saline Flush 0.9% IVP 10 ml PRN PRN Administration NEEDED PER PROVIDER ORDERS - Physical Exam Wound/Incisions: positive: Dressing dry and intact General Appearance: positive: No acute distress Respiratory: positive: Breath sounds nml Cardiovascular: positive: Regular rate & rhythm Abdomen: positive: Tenderness (Mild post surgical tenderness, no R/G/R no BS ostomy is purple but appears viable at this time, no gas in bag incisions are covered) Impression/Plan - Problem List Problem List: post op day 1 s/p campos's for sigmoid volvulus Plan continue IVF, NPO, NG tube and await bowel function return\ d/c graves today and increase ambulation
[2019-06-04] MEDS: ONDANSETRON 4 MG/2 ML VIAL IVP PRN (13:10)
--- NOTE | 2019-06-04 16:38 | PROVIDER PROGRESS NOTE ---
Subjective - General Admit Date: 06/03/19 Procedure Date: 06/03/19 Post Op Days: 1 Procedure Performed: open campos's - Review of Systems Wound/Incisions: positive: Dressing dry and intact Drain Type: ostomy Approximate mls Output: NG tube- 900 cc fecal material output General: positive: Fatigue Pulmonary: positive: Cough (mild production will monitor) Gastrointestinal: positive: Abdominal pain (increased from this morning, more cramping. only asked for one dose of pain medication) All Other Systems: positive: Reviewed and negative Objective - Patient Data Vital Signs: Vital Signs x48h Temp Pulse Resp BP Pulse Ox 06/04/19 15:42 36.9 C 69 16 147/62 H 93 06/04/19 13:56 100/48 L 06/04/19 13:00 36.6 C 55 L 19 93/41 L 96 06/04/19 08:39 36.6 C 68 18 107/52 L 95 Weight: Weight 06/02/19 06/03/19 06/04/19 23:59 23:59 23:59 Weight (kg) 83.915 kg 80.5 kg Intake & Output: Intake and Output Totals x24h 06/02/19 06/03/19 06/04/19 23:59 23:59 23:59 Intake Total 2300 833.333 Output Total 1625 Balance 2300 -791.667 - Lab Results Lab Results: 06/04/19 08:14 06/04/19 08:14 Other Lab Results: Lab Results x24hrs 06/04/19 06/04/19 06/04/19 Range/Units 11:53 08:14 08:14 WBC 9.9 (4.8-10.8) x10^3/uL RBC 3.52 L (4.70-6.10) 10^6/uL Hgb 11.4 L (14.0-18.0) g/dL Hct 33.3 L (42.0-52.0) % MCV 94.6 H (80.0-94.0) fL MCH 32.4 H (27.0-31.0) pg MCHC 34.2 (32.0-36.0) g/dL RDW 13.5 (12.0-15.0) % Plt Count 156 (130-450) 10^3/uL MPV 10.7 (7.4-11.4) fL Neut # (Auto) 8.2 H (1.5-6.6) 10^3/uL Lymph # (Auto) 0.9 L (1.5-3.5) 10^3/uL [place] # (Auto) 0.4 (0.0-1.0) 10^3/uL Eos # (Auto) 0.3 (0.0-0.7) 10^3/uL Baso # (Auto) 0.0 (0.0-0.1) 10^3/uL Absolute Nucleated RBC 0.00 x10^3/uL Nucleated RBC % 0.0 /100WBC Sodium 135 (135-145) mmol/L Potassium 3.3 L (3.5-5.0) mmol/L Chloride 98 L (101-111) mmol/L Carbon Dioxide 27 (21-32) mmol/L Anion Gap 10.0 (6-13) BUN 14 (6-20) mg/dL Creatinine 0.7 (0.6-1.2) mg/dL Estimated GFR (MDRD) 107 (>89) Glucose 114 H (70-100) mg/dL POC Whole Bld Glucose 106 H (70 - 100) mg/dL Calcium 7.9 L (8.5-10.3) mg/dL Phosphorus 4.3 (2.5-4.6) mg/dL Magnesium 2.2 (1.7-2.8) mg/dL Total Bilirubin 0.9 (0.2-1.0) mg/dL AST 23 (10-42) IU/L ALT 17 (10-60) IU/L Alkaline Phosphatase 35 L (42-121) IU/L Total Protein 5.5 L (6.7-8.2) g/dL Albumin 3.4 (3.2-5.5) g/dL Globulin 2.1 (2.1-4.2) g/dL Albumin/Globulin Ratio 1.6 (1.0-2.2) Urine Color Urine Clarity (CLEAR) Urine pH (5.0-7.5) PH Ur Specific [place] (1.002-1.030) Urine Protein (NEGATIVE) mg/dL Urine Glucose (UA) (NEGATIVE) mg/dL Urine Ketones (NEGATIVE) mg/dL Urine Occult Blood (NEGATIVE) Urine Nitrite (NEGATIVE) Urine Bilirubin (NEGATIVE) Urine Urobilinogen (NORMAL) E.U./dL Ur Leukocyte Esterase (NEGATIVE) Ur Microscopic Review Urine Culture Comments 06/04/19 06/03/19 Range/Units 07:56 19:35 WBC (4.8-10.8) x10^3/uL RBC (4.70-6.10) 10^6/uL Hgb (14.0-18.0) g/dL Hct (42.0-52.0) % MCV (80.0-94.0) fL MCH (27.0-31.0) pg MCHC (32.0-36.0) g/dL RDW (12.0-15.0) % Plt Count (130-450) 10^3/uL MPV (7.4-11.4) fL Neut # (Auto) (1.5-6.6) 10^3/uL Lymph # (Auto) (1.5-3.5) 10^3/uL [place] # (Auto) (0.0-1.0) 10^3/uL Eos # (Auto) (0.0-0.7) 10^3/uL Baso # (Auto) (0.0-0.1) 10^3/uL Absolute Nucleated RBC x10^3/uL Nucleated RBC % /100WBC Sodium (135-145) mmol/L Potassium (3.5-5.0) mmol/L Chloride (101-111) mmol/L Carbon Dioxide (21-32) mmol/L Anion Gap (6-13) BUN (6-20) mg/dL Creatinine (0.6-1.2) mg/dL Estimated GFR (MDRD) (>89) Glucose (70-100) mg/dL POC Whole Bld Glucose 97 (70 - 100) mg/dL Calcium (8.5-10.3) mg/dL Phosphorus (2.5-4.6) mg/dL Magnesium (1.7-2.8) mg/dL Total Bilirubin (0.2-1.0) mg/dL AST (10-42) IU/L ALT (10-60) IU/L Alkaline Phosphatase (42-121) IU/L Total Protein (6.7-8.2) g/dL Albumin (3.2-5.5) g/dL Globulin (2.1-4.2) g/dL Albumin/Globulin Ratio (1.0-2.2) Urine Color YELLOW Urine Clarity CLEAR (CLEAR) Urine pH 7.5 (5.0-7.5) PH Ur Specific [place] 1.010 (1.002-1.030) Urine Protein NEGATIVE (NEGATIVE) mg/dL Urine Glucose (UA) NEGATIVE (NEGATIVE) mg/dL Urine Ketones 15 H (NEGATIVE) mg/dL Urine Occult Blood NEGATIVE (NEGATIVE) Urine Nitrite NEGATIVE (NEGATIVE) Urine Bilirubin NEGATIVE (NEGATIVE) Urine Urobilinogen 0.2 (NORMAL) (NORMAL) E.U./dL Ur Leukocyte Esterase NEGATIVE (NEGATIVE) Ur Microscopic Review NOT INDICATED Urine Culture Comments NOT INDICATED - Current Medications Current Medications: Current Medications Generic Name Dose Route Start Last Admin Trade Name Freq PRN Reason Stop Dose Admin Enoxaparin Sodium 40 mg 06/04/19 09:00 06/04/19 08:22 Lovenox SUBQ 40 mg DAILY CHRISTIAN Administration Hydromorphone HCl 0.5 mg 06/03/19 23:19 06/04/19 12:10 Dilaudid Inj Syringe IVP 0.5 mg Q2H PRN Administration PAIN Lactated Ringer's 1,000 mls @ 50 mls/hr 06/03/19 23:45 06/04/19 06:19 Lr IV 50 mls/hr .Q20H CHRISTIAN Administration Ondansetron HCl 4 mg 06/03/19 23:19 06/04/19 13:10 Zofran Inj IVP 4 mg Q6HR PRN Administration Nausea / Vomiting Pantoprazole Sodium 40 mg 06/04/19 07:00 06/04/19 06:14 Protonix IVP 40 mg QDAC CHRISTIAN Administration Phenol/Menthol 1 sprays 06/03/19 23:19 06/04/19 13:09 Chloraseptic MM 1 sprays Q2H PRN Administration Mouth Sore Pain Sodium Chloride 10 ml 06/03/19 23:19 06/04/19 12:10 Normal Saline Flush 0.9% IVP 10 ml PRN PRN Administration NEEDED PER PROVIDER ORDERS Impression/Plan - Problem List 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
[2019-06-04] MEDS ORDERED: MORPHINE 2 MG/ML CARPUJECT IVP ONE (17:10)
[2019-06-04] MEDS: MORPHINE PCA 50 MG IV PRN (18:12)
[2019-06-04] MEDS ORDERED: LACTATED RINGERS 500 ML IV ONE (22:29)
[2019-06-04] MEDS ORDERED: LACTATED RINGERS 1,000 ML IV SCH (23:00)
[2019-06-05 04:48] LABS: BASOPHILS % (AUTO) 0.3 %; EOSINOPHILS % (AUTO) 0.2 %; HGB - HEMOGLOBIN 10.9 g/dL (14.0-18.0); LYMPHOCYTES # (AUTO) 1.4 10^3/uL (1.5-3.5); LYMPHOCYTES % (AUTO) 14.9 %; MEAN CORPUSCULAR HEMOGLOBIN 30.8 pg (27.0-31.0); MEAN CORPUSCULAR HGB CONC 31.4 g/dL (32.0-36.0); MEAN PLATELET VOLUME 10.4 fL (7.4-11.4); MONOCYTES # (AUTO) 0.5 10^3/uL (0.0-1.0); MONOCYTES % (AUTO) 4.7 %; NEUTROPHILS # (AUTO) 7.7 10^3/uL (1.5-6.6); NEUTROPHILS % (AUTO) 79.6 %; PLT - PLATELET COUNT 154 10^3/uL (130-450); RED BLOOD COUNT 3.54 10^6/uL (4.70-6.10); RED CELL DISTRIBUTION WIDTH 14.1 % (12.0-15.0); WHITE BLOOD COUNT 9.6 x10^3/uL (4.8-10.8)
[2019-06-05 04:54] LABS: CALCIUM 8.1 mg/dL (8.5-10.3); CREATININE 0.8 mg/dL (0.6-1.2)
[2019-06-05] MEDS: PANTOPRAZOLE 40 MG VIAL IVP SCH (07:05)
[2019-06-05] MEDS ORDERED: LACTATED RINGERS 500 ML IV ONE (09:22)
--- NOTE | 2019-06-05 09:25 | PROVIDER PROGRESS NOTE ---
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 from last night no gas in ostomy) All Other Systems: positive: Reviewed and negative Objective - Patient Data Vital Signs: Vital Signs x48h Temp Pulse Resp BP Pulse Ox 06/05/19 08:32 37.1 C 72 18 146/61 H 97 06/05/19 07:02 16 06/05/19 06:01 67 18 134/58 H 93 06/05/19 03:30 87 119/57 L 95 06/05/19 02:00 12 06/05/19 01:30 74 127/58 L 97 Weight: Weight 06/03/19 06/04/19 06/05/19 23:59 23:59 23:59 Weight (kg) 83.915 kg 80.5 kg Intake & Output: Intake and Output Totals x24h 06/03/19 06/04/19 06/05/19 23:59 23:59 23:59 Intake Total 2300 1729.333 770.417 Output Total 1930 0 Balance 2300 -200.667 770.417 - Lab Results Lab Results: 06/05/19 04:15 06/05/19 04:15 Other Lab Results: Lab Results x24hrs 06/05/19 06/05/19 06/05/19 Range/Units 08:22 04:15 04:15 WBC 9.6 (4.8-10.8) x10^3/uL RBC 3.54 L (4.70-6.10) 10^6/uL Hgb 10.9 L (14.0-18.0) g/dL Hct 34.7 L (42.0-52.0) % MCV 98.0 H (80.0-94.0) fL MCH 30.8 (27.0-31.0) pg MCHC 31.4 L (32.0-36.0) g/dL RDW 14.1 (12.0-15.0) % Plt Count 154 (130-450) 10^3/uL MPV 10.4 (7.4-11.4) fL Neut # (Auto) 7.7 H (1.5-6.6) 10^3/uL Lymph # (Auto) 1.4 L (1.5-3.5) 10^3/uL [place] # (Auto) 0.5 (0.0-1.0) 10^3/uL Eos # (Auto) 0.0 (0.0-0.7) 10^3/uL Baso # (Auto) 0.0 (0.0-0.1) 10^3/uL Absolute Nucleated RBC 0.00 x10^3/uL Nucleated RBC % 0.0 /100WBC Sodium 138 (135-145) mmol/L Potassium 4.0 (3.5-5.0) mmol/L Chloride 98 L (101-111) mmol/L Carbon Dioxide 31 (21-32) mmol/L Anion Gap 9.0 (6-13) BUN 19 (6-20) mg/dL Creatinine 0.8 (0.6-1.2) mg/dL Estimated GFR (MDRD) 91 (>89) Glucose 115 H (70-100) mg/dL POC Whole Bld Glucose 92 (70 - 100) mg/dL Calcium 8.1 L (8.5-10.3) mg/dL 06/04/19 06/04/19 06/04/19 Range/Units 21:25 17:07 11:53 WBC (4.8-10.8) x10^3/uL RBC (4.70-6.10) 10^6/uL Hgb (14.0-18.0) g/dL Hct (42.0-52.0) % MCV (80.0-94.0) fL MCH (27.0-31.0) pg MCHC (32.0-36.0) g/dL RDW (12.0-15.0) % Plt Count (130-450) 10^3/uL MPV (7.4-11.4) fL Neut # (Auto) (1.5-6.6) 10^3/uL Lymph # (Auto) (1.5-3.5) 10^3/uL [place] # (Auto) (0.0-1.0) 10^3/uL Eos # (Auto) (0.0-0.7) 10^3/uL Baso # (Auto) (0.0-0.1) 10^3/uL Absolute Nucleated RBC x10^3/uL Nucleated RBC % /100WBC Sodium (135-145) mmol/L Potassium (3.5-5.0) mmol/L Chloride (101-111) mmol/L Carbon Dioxide (21-32) mmol/L Anion Gap (6-13) BUN (6-20) mg/dL Creatinine (0.6-1.2) mg/dL Estimated GFR (MDRD) (>89) Glucose (70-100) mg/dL POC Whole Bld Glucose 104 H 98 106 H (70 - 100) mg/dL Calcium (8.5-10.3) mg/dL - Current Medications Current Medications: Current Medications Generic Name Dose Route Start Last Admin Trade Name Freq PRN Reason Stop Dose Admin Enoxaparin Sodium 40 mg 06/04/19 09:00 06/04/19 08:22 Lovenox SUBQ 40 mg DAILY CHRISTIAN Administration Hydromorphone HCl 0.5 mg 06/03/19 23:19 06/04/19 12:10 Dilaudid Inj Syringe IVP 0.5 mg Q2H PRN Administration PAIN Morphine Sulfate/Sodium Chloride 0 mg 06/04/19 16:39 06/04/19 18:12 Morphine Pasta Maker (Use Pasta Maker Order Set) IV 50 mg PARK WORKER SUPERVISOR PRN Administration PAIN Protocol Ondansetron HCl 4 mg 06/03/19 23:19 06/04/19 13:10 Zofran Inj IVP 4 mg Q6HR PRN Administration Nausea / Vomiting Pantoprazole Sodium 40 mg 06/04/19 07:00 06/05/19 07:05 Protonix IVP 40 mg QDAC CHRISTIAN Administration Phenol/Menthol 1 sprays 06/03/19 23:19 06/04/19 13:09 Chloraseptic MM 1 sprays Q2H PRN Administration Mouth Sore Pain Sodium Chloride 10 ml 06/03/19 23:19 06/04/19 12:10 Normal Saline Flush 0.9% IVP 10 ml PRN PRN Administration NEEDED PER PROVIDER ORDERS - Physical Exam Wound/Incisions: positive: Dressing dry and intact Respiratory: positive: Breath sounds nml Cardiovascular: positive: Regular rate & rhythm Abdomen: positive: Other (NG in place starting to be more liquid but still has dark brown color to output. Abd has mild distention, mild tenderness, ostomy is very dusky, no output will need to follow closely) Impression/Plan - Problem List Problem List: POD #2 s/p campos's. No urine output since graves was removed so it was replaced. 500cc of dark urine, I/o imbalance will replace fluid imbalance, continue NG tube with large and dark output, i suspect this was a 10 day obstruction at home and will take time for this to resolve, continue NPO and bowel rest. Will have PT to increase ambulation. Patient understands this plan and is in agreeement with it.
[2019-06-05] MEDS: ENOXAPARIN 40 MG/0.4 ML SYRINGE SUBQ SCH (09:40)
[2019-06-05] MEDS: LACTATED RINGERS 1,000 ML IV SCH ×3 (09:40→17:04)
--- NOTE | 2019-06-05 17:40 | PROVIDER PROGRESS NOTE ---
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 it is unchanged from last night no gas in ostomy) Skin: positive: Rash (RN called pateint has new rash that is itchy) All Other Systems: positive: Reviewed and negative Objective - Patient Data Vital Signs: Vital Signs x48h Temp Pulse Pulse Resp BP BP Pulse Ox 06/05/19 16:13 36.7 C 69 18 150/62 H 96 06/05/19 13:04 36.9 C 75 20 171/73 H 96 06/05/19 11:10 75 125/53 L 06/05/19 11:00 75 125/53 L Weight: Weight 06/03/19 06/04/19 06/05/19 23:59 23:59 23:59 Weight (kg) 83.915 kg 80.5 kg Intake & Output: Intake and Output Totals x24h 06/03/19 06/04/19 06/05/19 23:59 23:59 23:59 Intake Total 2300 5664.328 6091.253 Output Total 1930 1275 Balance 2300 -265.049 3688.253 - Lab Results Lab Results: 06/05/19 04:15 06/05/19 04:15 Other Lab Results: Lab Results x24hrs 06/05/19 06/05/19 06/05/19 Range/Units 16:50 13:01 08:22 WBC (4.8-10.8) x10^3/uL RBC (4.70-6.10) 10^6/uL Hgb (14.0-18.0) g/dL Hct (42.0-52.0) % MCV (80.0-94.0) fL MCH (27.0-31.0) pg MCHC (32.0-36.0) g/dL RDW (12.0-15.0) % Plt Count (130-450) 10^3/uL MPV (7.4-11.4) fL Neut # (Auto) (1.5-6.6) 10^3/uL Lymph # (Auto) (1.5-3.5) 10^3/uL [place] # (Auto) (0.0-1.0) 10^3/uL Eos # (Auto) (0.0-0.7) 10^3/uL Baso # (Auto) (0.0-0.1) 10^3/uL Absolute Nucleated RBC x10^3/uL Nucleated RBC % /100WBC Sodium (135-145) mmol/L Potassium (3.5-5.0) mmol/L Chloride (101-111) mmol/L Carbon Dioxide (21-32) mmol/L Anion Gap (6-13) BUN (6-20) mg/dL Creatinine (0.6-1.2) mg/dL Estimated GFR (MDRD) (>89) Glucose (70-100) mg/dL POC Whole Bld Glucose 90 97 92 (70 - 100) mg/dL Calcium (8.5-10.3) mg/dL 06/05/19 06/05/19 06/04/19 Range/Units 04:15 04:15 21:25 WBC 9.6 (4.8-10.8) x10^3/uL RBC 3.54 L (4.70-6.10) 10^6/uL Hgb 10.9 L (14.0-18.0) g/dL Hct 34.7 L (42.0-52.0) % MCV 98.0 H (80.0-94.0) fL MCH 30.8 (27.0-31.0) pg MCHC 31.4 L (32.0-36.0) g/dL RDW 14.1 (12.0-15.0) % Plt Count 154 (130-450) 10^3/uL MPV 10.4 (7.4-11.4) fL Neut # (Auto) 7.7 H (1.5-6.6) 10^3/uL Lymph # (Auto) 1.4 L (1.5-3.5) 10^3/uL [place] # (Auto) 0.5 (0.0-1.0) 10^3/uL Eos # (Auto) 0.0 (0.0-0.7) 10^3/uL Baso # (Auto) 0.0 (0.0-0.1) 10^3/uL Absolute Nucleated RBC 0.00 x10^3/uL Nucleated RBC % 0.0 /100WBC Sodium 138 (135-145) mmol/L Potassium 4.0 (3.5-5.0) mmol/L Chloride 98 L (101-111) mmol/L Carbon Dioxide 31 (21-32) mmol/L Anion Gap 9.0 (6-13) BUN 19 (6-20) mg/dL Creatinine 0.8 (0.6-1.2) mg/dL Estimated GFR (MDRD) 91 (>89) Glucose 115 H (70-100) mg/dL POC Whole Bld Glucose 104 H (70 - 100) mg/dL Calcium 8.1 L (8.5-10.3) mg/dL - Current Medications Current Medications: Current Medications Generic Name Dose Route Start Last Admin Trade Name Freq PRN Reason Stop Dose Admin Enoxaparin Sodium 40 mg 06/04/19 09:00 06/05/19 09:40 Lovenox SUBQ 40 mg DAILY CHRISTIAN Administration Hydromorphone HCl 0.5 mg 06/03/19 23:19 06/04/19 12:10 Dilaudid Inj Syringe IVP 0.5 mg Q2H PRN Administration PAIN Lactated Ringer's 1,000 mls @ 125 mls/hr 06/05/19 17:00 06/05/19 17:04 Lr IV 125 mls/hr .Q8H CHRISTIAN Administration Morphine Sulfate/Sodium Chloride 0 mg 06/04/19 16:39 06/04/19 18:12 Morphine Plumber Cub (Use Plumber Cub Order Set) IV 50 mg [employer] PRN Administration PAIN Protocol Ondansetron HCl 4 mg 06/03/19 23:19 06/04/19 13:10 Zofran Inj IVP 4 mg Q6HR PRN Administration Nausea / Vomiting Pantoprazole Sodium 40 mg 06/04/19 07:00 06/05/19 07:05 Protonix IVP 40 mg QDAC CHRISTIAN Administration Phenol/Menthol 1 sprays 06/03/19 23:19 06/04/19 13:09 Chloraseptic MM 1 sprays Q2H PRN Administration Mouth Sore Pain Sodium Chloride 10 ml 06/03/19 23:19 06/04/19 12:10 Normal Saline Flush 0.9% IVP 10 ml PRN PRN Administration NEEDED PER PROVIDER ORDERS - Physical Exam General Appearance: positive: No acute distress Skin: positive: Skin rash (mild erythematous rash interior upper arms bilaterally and posterior knee, consistent with heat rash, no hives, no welts no SOB) Impression/Plan - Problem List Problem List: interium rash development appears more consistent with contact or heat rash as opposed to allegric rx. He states he has sensitive skin and has had this before. He uses lotion daily for it but doesn't have it here. Will start lotion to the area and Benadryl for itchiness and monitor for further development and change out laundry/gown. Discussed with patient and RN
[2019-06-05] MEDS: diphenhydrAMINE INJ 50 MG/ML VIAL IVP PRN (18:10)
[2019-06-05] MEDS: SODIUM CHLORIDE FLUSH 0.9% 10 ML SYRINGE IVP PRN (18:11)
[2019-06-05] MEDS: MORPHINE PCA 50 MG IV PRN (22:24)
[2019-06-06] MEDS: LACTATED RINGERS 1,000 ML IV SCH ×2 (01:02→08:35)
[2019-06-06 05:34] LABS: BASOPHILS % (AUTO) 0.2 %; EOSINOPHILS # (AUTO) 0.1 10^3/uL (0.0-0.7); EOSINOPHILS % (AUTO) 1.6 %; HGB - HEMOGLOBIN 10.5 g/dL (14.0-18.0); LYMPHOCYTES # (AUTO) 1.1 10^3/uL (1.5-3.5); LYMPHOCYTES % (AUTO) 13.1 %; MEAN CORPUSCULAR HEMOGLOBIN 31.5 pg (27.0-31.0); MEAN CORPUSCULAR HGB CONC 32.4 g/dL (32.0-36.0); MEAN CORPUSCULAR VOLUME 97.3 fL (80.0-94.0); MONOCYTES # (AUTO) 0.4 10^3/uL (0.0-1.0); MONOCYTES % (AUTO) 4.9 %; NEUTROPHILS # (AUTO) 6.6 10^3/uL (1.5-6.6); NEUTROPHILS % (AUTO) 79.8 %; PLT - PLATELET COUNT 145 10^3/uL (130-450); RED BLOOD COUNT 3.33 10^6/uL (4.70-6.10); RED CELL DISTRIBUTION WIDTH 13.6 % (12.0-15.0); WHITE BLOOD COUNT 8.3 x10^3/uL (4.8-10.8)
[2019-06-06 05:47] LABS: ALBUMIN 2.9 g/dL (3.2-5.5); ALBUMIN/GLOBULIN RATIO 1.3 (1.0-2.2); BILIRUBIN,TOTAL 1.5 mg/dL (0.2-1.0); CREATININE 0.6 mg/dL (0.6-1.2); TOTAL PROTEIN 5.2 g/dL (6.7-8.2)
[2019-06-06] MEDS: PANTOPRAZOLE 40 MG VIAL IVP SCH (06:43)
[2019-06-06] MEDS: ENOXAPARIN 40 MG/0.4 ML SYRINGE SUBQ SCH (08:33)
--- NOTE | 2019-06-06 10:31 | PROVIDER PROGRESS NOTE ---
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 feels like he is doing well) Skin: positive: Rash (RN called pateint has new rash that is itchy) All Other Systems: positive: Reviewed and negative Objective - Patient Data Vital Signs: Vital Signs x48h Temp Pulse Resp BP Pulse Ox 06/06/19 08:39 36.8 C 72 177/78 H 97 06/06/19 06:00 15 06/06/19 04:34 36.7 C 73 20 164/69 H 96 Weight: Weight 06/04/19 06/05/19 06/06/19 23:59 23:59 23:59 Weight (kg) 80.5 kg Intake & Output: Intake and Output Totals x24h 06/04/19 06/05/19 06/06/19 23:59 23:59 23:59 Intake Total 5593.565 8317.253 2023.75 Output Total 1930 1925 750 Balance -712.619 8036.253 1273.75 - Lab Results Lab Results: 06/06/19 04:45 06/06/19 04:45 Other Lab Results: Lab Results x24hrs 06/06/19 06/06/19 06/06/19 Range/Units 08:42 04:45 04:45 WBC 8.3 (4.8-10.8) x10^3/uL RBC 3.33 L (4.70-6.10) 10^6/uL Hgb 10.5 L (14.0-18.0) g/dL Hct 32.4 L (42.0-52.0) % MCV 97.3 H (80.0-94.0) fL MCH 31.5 H (27.0-31.0) pg MCHC 32.4 (32.0-36.0) g/dL RDW 13.6 (12.0-15.0) % Plt Count 145 (130-450) 10^3/uL MPV 11.0 (7.4-11.4) fL Neut # (Auto) 6.6 (1.5-6.6) 10^3/uL Lymph # (Auto) 1.1 L (1.5-3.5) 10^3/uL [place] # (Auto) 0.4 (0.0-1.0) 10^3/uL Eos # (Auto) 0.1 (0.0-0.7) 10^3/uL Baso # (Auto) 0.0 (0.0-0.1) 10^3/uL Absolute Nucleated RBC 0.00 x10^3/uL Nucleated RBC % 0.0 /100WBC Sodium 135 (135-145) mmol/L Potassium 3.1 L (3.5-5.0) mmol/L Chloride 100 L (101-111) mmol/L Carbon Dioxide 27 (21-32) mmol/L Anion Gap 8.0 (6-13) BUN 14 (6-20) mg/dL Creatinine 0.6 (0.6-1.2) mg/dL Estimated GFR (MDRD) 127 (>89) Glucose 98 (70-100) mg/dL POC Whole Bld Glucose 85 (70 - 100) mg/dL Calcium 8.0 L (8.5-10.3) mg/dL Total Bilirubin 1.5 H (0.2-1.0) mg/dL AST 21 (10-42) IU/L ALT 13 (10-60) IU/L Alkaline Phosphatase 36 L (42-121) IU/L Total Protein 5.2 L (6.7-8.2) g/dL Albumin 2.9 L (3.2-5.5) g/dL Globulin 2.3 (2.1-4.2) g/dL Albumin/Globulin Ratio 1.3 (1.0-2.2) 06/05/19 06/05/19 06/05/19 Range/Units 20:54 16:50 13:01 WBC (4.8-10.8) x10^3/uL RBC (4.70-6.10) 10^6/uL Hgb (14.0-18.0) g/dL Hct (42.0-52.0) % MCV (80.0-94.0) fL MCH (27.0-31.0) pg MCHC (32.0-36.0) g/dL RDW (12.0-15.0) % Plt Count (130-450) 10^3/uL MPV (7.4-11.4) fL Neut # (Auto) (1.5-6.6) 10^3/uL Lymph # (Auto) (1.5-3.5) 10^3/uL [place] # (Auto) (0.0-1.0) 10^3/uL Eos # (Auto) (0.0-0.7) 10^3/uL Baso # (Auto) (0.0-0.1) 10^3/uL Absolute Nucleated RBC x10^3/uL Nucleated RBC % /100WBC Sodium (135-145) mmol/L Potassium (3.5-5.0) mmol/L Chloride (101-111) mmol/L Carbon Dioxide (21-32) mmol/L Anion Gap (6-13) BUN (6-20) mg/dL Creatinine (0.6-1.2) mg/dL Estimated GFR (MDRD) (>89) Glucose (70-100) mg/dL POC Whole Bld Glucose 85 90 97 (70 - 100) mg/dL Calcium (8.5-10.3) mg/dL Total Bilirubin (0.2-1.0) mg/dL AST (10-42) IU/L ALT (10-60) IU/L Alkaline Phosphatase (42-121) IU/L Total Protein (6.7-8.2) g/dL Albumin (3.2-5.5) g/dL Globulin (2.1-4.2) g/dL Albumin/Globulin Ratio (1.0-2.2) - Current Medications Current Medications: Current Medications Generic Name Dose Route Start Last Admin Trade Name Freq PRN Reason Stop Dose Admin Diphenhydramine HCl 25 mg 06/05/19 17:36 06/05/19 18:10 Benadryl Inj IVP 25 mg Q6H PRN Administration Allergy Symptoms Enoxaparin Sodium 40 mg 06/04/19 09:00 06/06/19 08:33 Lovenox SUBQ 40 mg DAILY CHRISTIAN Administration Hydromorphone HCl 0.5 mg 06/03/19 23:19 06/04/19 12:10 Dilaudid Inj Syringe IVP 0.5 mg Q2H PRN Administration PAIN Morphine Sulfate/Sodium Chloride 0 mg 06/04/19 16:39 06/05/19 22:24 Morphine Clerical Transcriber (Use Clerical Transcriber Order Set) IV 50 mg CUSTOMER SERVICE REP PRN Administration PAIN Protocol Ondansetron HCl 4 mg 06/03/19 23:19 06/04/19 13:10 Zofran Inj IVP 4 mg Q6HR PRN Administration Nausea / Vomiting Pantoprazole Sodium 40 mg 06/04/19 07:00 06/06/19 06:43 Protonix IVP 40 mg QDAC CHRISTIAN Administration Phenol/Menthol 1 sprays 06/03/19 23:19 06/04/19 13:09 Chloraseptic MM 1 sprays Q2H PRN Administration Mouth Sore Pain Sodium Chloride 10 ml 06/03/19 23:19 06/05/19 18:11 Normal Saline Flush 0.9% IVP 10 ml PRN PRN Administration NEEDED PER PROVIDER ORDERS - Physical Exam Wound/Incisions: positive: Healing well, Erythema (mild erythema at the umbilical area) General Appearance: positive: No acute distress (sitting comfortably in bed states he feels well) Respiratory: positive: Breath sounds nml Cardiovascular: positive: Regular rate & rhythm Abdomen: positive: Other (mild distenstion, mild tenderness at incision, no R/G/R no BS, ostomy is dusky at skin level but remains intack, no air or stool in the bag) Skin: positive: Other (rash is slightly worse along the upper arms and inner thi ghs) Impression/Plan - Problem List Problem List: pod #3 s/p campos's procedure. HE is doing well, his ng output is starting to taper, his UPO is picked up dramatically, he feels clinically improved. Althought the ostomy is dusky it remains attached at the skin level. Plan to continue conservative care with NG NPO IVF and await bowel function return. Need to change IVF for electrolyte corrections and replace K. May consider starting mag citrate via his NG tube tomorrow, may also consider removing his graves tomorrow again. He understands this plan and is in agreement with it.
[2019-06-06] MEDS ORDERED: POTASSIUM CHLOR 10 MEQ/100 ML 10 MEQ/100 ML BAG IV ONE (11:00)
[2019-06-06] MEDS: NS W/40 MEQ KCL 1,000 ML IV SCH ×2 (11:21→21:53)
[2019-06-06] MEDS: diphenhydrAMINE INJ 50 MG/ML VIAL IVP PRN (17:14)
[2019-06-07 05:13] LABS: BASOPHILS % (AUTO) 0.2 %; EOSINOPHILS # (AUTO) 0.3 10^3/uL (0.0-0.7); EOSINOPHILS % (AUTO) 3.9 %; HGB - HEMOGLOBIN 10.6 g/dL (14.0-18.0); LYMPHOCYTES # (AUTO) 1.1 10^3/uL (1.5-3.5); LYMPHOCYTES % (AUTO) 17.3 %; MEAN CORPUSCULAR HEMOGLOBIN 30.7 pg (27.0-31.0); MEAN CORPUSCULAR HGB CONC 32.6 g/dL (32.0-36.0); MEAN CORPUSCULAR VOLUME 94.2 fL (80.0-94.0); MEAN PLATELET VOLUME 10.6 fL (7.4-11.4); MONOCYTES # (AUTO) 0.3 10^3/uL (0.0-1.0); MONOCYTES % (AUTO) 5.1 %; NEUTROPHILS # (AUTO) 4.7 10^3/uL (1.5-6.6); NEUTROPHILS % (AUTO) 73.2 %; PLT - PLATELET COUNT 157 10^3/uL (130-450); RED BLOOD COUNT 3.45 10^6/uL (4.70-6.10); RED CELL DISTRIBUTION WIDTH 13.2 % (12.0-15.0); WHITE BLOOD COUNT 6.5 x10^3/uL (4.8-10.8)
[2019-06-07 05:25] LABS: CALCIUM 7.8 mg/dL (8.5-10.3); CREATININE 0.6 mg/dL (0.6-1.2)
--- NOTE | 2019-06-07 06:40 | XRAY Report ---
Reason: ng tube placed Procedure Date: 06/07/2019 Accession Number: [id number] / [id number] Procedure: XR - Chest for Line Placement CPT Code: Final Report FULL RESULT: EXAM: CHEST RADIOGRAPHY EXAM DATE: 06/07/2019. CLINICAL HISTORY: Ng tube placed. COMPARISON: None. TECHNIQUE: 1 view. FINDINGS: Lungs/Pleura: Subsegmental atelectasis versus scarring at the lower lungs. No pleural effusion. No pneumothorax. Mediastinum: Within exam limitations, the cardiomediastinal contour is unremarkable. Other: None. IMPRESSION: Enteric tube tip is located in the left upper quadrant in the region of the stomach. RADIA
[2019-06-07] MEDS: NS W/40 MEQ KCL 1,000 ML IV SCH ×2 (08:01→18:27)
[2019-06-07] MEDS: PANTOPRAZOLE 40 MG VIAL IVP SCH (08:03)
[2019-06-07] MEDS: ENOXAPARIN 40 MG/0.4 ML SYRINGE SUBQ SCH (08:03)
--- NOTE | 2019-06-07 10:51 | PROVIDER PROGRESS NOTE ---
Subjective - General Admit Date: 06/03/19 Procedure Date: 06/03/19 Post Op Days: 4 Procedure Performed: open campos's - Review of Systems Wound/Incisions: positive: Healing well, Erythema (resolved erythema at the umbilical area now mild bruising) Drain Type: ostomy- dusky at skin level Approximate mls Output: NG tube- 200 cc output General: positive: No symptoms Pulmonary: positive: No symptoms Cardiovascular: positive: No symptoms Gastrointestinal: positive: Abdominal pain (less pain less bloating, feels good) Skin: positive: Rash (RN called bonnieeint has new rash that is itchy) All Other Systems: positive: Reviewed and negative Objective - Patient Data Vital Signs: Vital Signs x48h Temp Pulse Resp BP Pulse Ox 06/07/19 08:00 36.3 C L 64 18 149/70 H 96 06/07/19 05:00 14 06/07/19 04:02 36.7 C 68 18 168/73 H 96 Intake & Output: Intake and Output Totals x24h 06/05/19 06/06/19 06/07/19 23:59 23:59 23:59 Intake Total 3831.253 3632.080 1000 Output Total 1925 2300 1015 Balance 7949.705 2618.080 -15 - Lab Results Lab Results: 06/07/19 04:30 06/07/19 04:30 Other Lab Results: Lab Results x24hrs 06/07/19 06/07/19 06/06/19 Range/Units 04:30 04:30 20:13 WBC 6.5 (4.8-10.8) x10^3/uL RBC 3.45 L (4.70-6.10) 10^6/uL Hgb 10.6 L (14.0-18.0) g/dL Hct 32.5 L (42.0-52.0) % MCV 94.2 H (80.0-94.0) fL MCH 30.7 (27.0-31.0) pg MCHC 32.6 (32.0-36.0) g/dL RDW 13.2 (12.0-15.0) % Plt Count 157 (130-450) 10^3/uL MPV 10.6 (7.4-11.4) fL Neut # (Auto) 4.7 (1.5-6.6) 10^3/uL Lymph # (Auto) 1.1 L (1.5-3.5) 10^3/uL [place] # (Auto) 0.3 (0.0-1.0) 10^3/uL Eos # (Auto) 0.3 (0.0-0.7) 10^3/uL Baso # (Auto) 0.0 (0.0-0.1) 10^3/uL Absolute Nucleated RBC 0.00 x10^3/uL Nucleated RBC % 0.0 /100WBC Sodium 135 (135-145) mmol/L Potassium 3.3 L (3.5-5.0) mmol/L Chloride 104 (101-111) mmol/L Carbon Dioxide 22 (21-32) mmol/L Anion Gap 9.0 (6-13) BUN 13 (6-20) mg/dL Creatinine 0.6 (0.6-1.2) mg/dL Estimated GFR (MDRD) 127 (>89) Glucose 88 (70-100) mg/dL POC Whole Bld Glucose 77 (70 - 100) mg/dL Calcium 7.8 L (8.5-10.3) mg/dL Phosphorus 2.0 L (2.5-4.6) mg/dL Magnesium 2.0 (1.7-2.8) mg/dL 06/06/19 06/06/19 Range/Units 17:08 12:15 WBC (4.8-10.8) x10^3/uL RBC (4.70-6.10) 10^6/uL Hgb (14.0-18.0) g/dL Hct (42.0-52.0) % MCV (80.0-94.0) fL MCH (27.0-31.0) pg MCHC (32.0-36.0) g/dL RDW (12.0-15.0) % Plt Count (130-450) 10^3/uL MPV (7.4-11.4) fL Neut # (Auto) (1.5-6.6) 10^3/uL Lymph # (Auto) (1.5-3.5) 10^3/uL [place] # (Auto) (0.0-1.0) 10^3/uL Eos # (Auto) (0.0-0.7) 10^3/uL Baso # (Auto) (0.0-0.1) 10^3/uL Absolute Nucleated RBC x10^3/uL Nucleated RBC % /100WBC Sodium (135-145) mmol/L Potassium (3.5-5.0) mmol/L Chloride (101-111) mmol/L Carbon Dioxide (21-32) mmol/L Anion Gap (6-13) BUN (6-20) mg/dL Creatinine (0.6-1.2) mg/dL Estimated GFR (MDRD) (>89) Glucose (70-100) mg/dL POC Whole Bld Glucose 81 80 (70 - 100) mg/dL Calcium (8.5-10.3) mg/dL Phosphorus (2.5-4.6) mg/dL Magnesium (1.7-2.8) mg/dL - Current Medications Current Medications: Current Medications Generic Name Dose Route Start Last Admin Trade Name Freq PRN Reason Stop Dose Admin Diphenhydramine HCl 25 mg 06/05/19 17:36 06/06/19 17:14 Benadryl Inj IVP 25 mg Q6H PRN Administration Allergy Symptoms Enoxaparin Sodium 40 mg 06/04/19 09:00 06/07/19 08:03 Lovenox SUBQ 40 mg DAILY CHRISTIAN Administration Hydromorphone HCl 0.5 mg 06/03/19 23:19 06/04/19 12:10 Dilaudid Inj Syringe IVP 0.5 mg Q2H PRN Administration PAIN Potassium Chloride/Sodium Chloride 1,000 mls @ 100 mls/hr 06/06/19 12:00 06/07/19 08:01 Normal Saline 0.9% W/40 Meq Kcl IV 100 mls/hr .Q10H CHRISTIAN Administration Morphine Sulfate/Sodium Chloride 0 mg 06/04/19 16:39 06/05/19 22:24 Morphine Sock Knitting Machine Operator (Use Sock Knitting Machine Operator Order Set) IV 50 mg [place] PRN Administration PAIN Protocol Ondansetron HCl 4 mg 06/03/19 23:19 06/04/19 13:10 Zofran Inj IVP 4 mg Q6HR PRN Administration Nausea / Vomiting Pantoprazole Sodium 40 mg 06/04/19 07:00 06/07/19 08:03 Protonix IVP 40 mg QDAC CHRISTIAN Administration Phenol/Menthol 1 sprays 06/03/19 23:19 06/04/19 13:09 Chloraseptic MM 1 sprays Q2H PRN Administration Mouth Sore Pain Sodium Chloride 10 ml 06/03/19 23:19 06/05/19 18:11 Normal Saline Flush 0.9% IVP 10 ml PRN PRN Administration NEEDED PER PROVIDER ORDERS - Physical Exam Wound/Incisions: positive: Healing well, No drainage, Erythema improving General Appearance: positive: No acute distress Respiratory: positive: Breath sounds nml Cardiovascular: positive: Regular rate & rhythm Abdomen: positive: Other (less distended and very soft, BS present, ostomy inspected and finger dilated to below the facial level, patchy duskiness only at skin level remains intack to skin edge even with finger dilation) Impression/Plan - Problem List Problem List: POD #4 finger dilation done today, ostomy healthy and ready for use. Given the amount of stool in the colon at the time of surgery will need something to aid in bowel function return, will use the NG for mag citrate and monitor response. Once we see ostomy function we will be able to start oral intake. Continue to ambulate the halls
[2019-06-07] MEDS: MAGNESIUM CITRATE 296 ML BOTTLE PO PRN ×2 (11:15→15:30)
[2019-06-07] MEDS ORDERED: POTASSIUM CHLOR 10 MEQ/100 ML 10 MEQ/100 ML BAG IV SCH (14:00)
[2019-06-07] MEDS ORDERED: POTASSIUM PHOSPHATE 21 MMOL in SODIUM CHLORIDE 0.9% 250 ML IV ONE (14:30)
[2019-06-07] MEDS: SODIUM CHLORIDE FLUSH 0.9% 10 ML SYRINGE IVP PRN ×2 (15:32→21:11)
[2019-06-07] MEDS: diphenhydrAMINE INJ 50 MG/ML VIAL IVP PRN (21:11)
[2019-06-08] MEDS: ONDANSETRON 4 MG/2 ML VIAL IVP PRN ×2 (01:54→18:09)
[2019-06-08] MEDS: NS W/40 MEQ KCL 1,000 ML IV SCH (04:19)
[2019-06-08] MEDS: PANTOPRAZOLE 40 MG VIAL IVP SCH (06:22)
[2019-06-08] MEDS ORDERED: HYDROcod/ACETAM 5/325 MG TABLET PO PRN (10:03)
--- NOTE | 2019-06-08 10:13 | PROVIDER PROGRESS NOTE ---
Subjective - General Admit Date: 06/03/19 Procedure Date: 06/03/19 Post Op Days: 5 Procedure Performed: open campos's - Review of Systems Wound/Incisions: positive: Healing well, No drainage Drain Type: ostomy- patchy duskiness at skin level Approximate mls Output: NG tube- General: positive: No symptoms, Fatigue (tired this morning) Pulmonary: positive: No symptoms Cardiovascular: positive: No symptoms Gastrointestinal: positive: Abdominal pain (less pain less bloating, feels good gas coming out the ostomy, some belching) Genitourinary: positive: No symptoms, Other (able to urinate this am) Skin: positive: Rash (stable and unchanged) All Other Systems: positive: Reviewed and negative Objective - Patient Data Vital Signs: Vital Signs x48h Temp Pulse Resp BP Pulse Ox 06/08/19 06:25 16 06/08/19 06:22 36.4 C L 80 16 149/76 H 94 Intake & Output: Intake and Output Totals x24h 06/06/19 06/07/19 06/08/19 23:59 23:59 23:59 Intake Total 3632.080 2777 986.667 Output Total 2300 1970 325 Balance 1332.080 807 661.667 - Lab Results Lab Results: 06/07/19 04:30 06/07/19 04:30 Other Lab Results: Lab Results x24hrs 06/07/19 Range/Units 08:23 POC Whole Bld Glucose 84 (70 - 100) mg/dL - Current Medications Current Medications: Current Medications Generic Name Dose Route Start Last Admin Trade Name Freq PRN Reason Stop Dose Admin Diphenhydramine HCl 25 mg 06/05/19 17:36 06/07/19 21:11 Benadryl Inj IVP 25 mg Q6H PRN Administration Allergy Symptoms Enoxaparin Sodium 40 mg 06/04/19 09:00 06/07/19 08:03 Lovenox SUBQ 40 mg DAILY CHRISTIAN Administration Hydromorphone HCl 0.5 mg 06/03/19 23:19 06/04/19 12:10 Dilaudid Inj Syringe IVP 0.5 mg Q2H PRN Administration PAIN Magnesium Citrate 296 ml 06/07/19 11:00 06/07/19 15:30 PO 06/10/19 10:59 148 ml ONCE PRN Administration Constipation Ondansetron HCl 4 mg 06/03/19 23:19 06/08/19 01:54 Zofran Inj IVP 4 mg Q6HR PRN Administration Nausea / Vomiting Phenol/Menthol 1 sprays 06/03/19 23:19 06/04/19 13:09 Chloraseptic MM 1 sprays Q2H PRN Administration Mouth Sore Pain Sodium Chloride 10 ml 06/03/19 23:19 06/07/19 21:11 Normal Saline Flush 0.9% IVP 10 ml PRN PRN Administration NEEDED PER PROVIDER ORDERS - Physical Exam Wound/Incisions: positive: Healing well, No drainage General Appearance: positive: No acute distress Respiratory: positive: Breath sounds nml Cardiovascular: positive: Regular rate & rhythm Abdomen: positive: Other (soft, mild post surgical tenderness, no R/G/R, BS present, ostomy unchanged and gas in bag, no stool) Neurologic/Psychiatric: positive: Oriented x3 Impression/Plan - Problem List Problem List: POD #5, ostomy functioning with gas output, still has large amount of stool present that needs to start moving through, mag citrate from yesterday has not had any affect yet. Plan to put suprep down the NG and pull the NG, advance diet as tolerated, d/c STUDENT DRIVING INSTRUCTOR and change to oral pain meds, restart home meds, ambulated and obtain ostomy teaching. When his ostomy starts stooling he will be ready for discharge home. Anticipate discharge tomorrow or saturday.
[2019-06-08] MEDS ORDERED: SODIUM/POTASSIUM/MAG SULFATES 354 ML PREP KIT PO SCH (11:00)
[2019-06-08] MEDS ORDERED: NS W/40 MEQ KCL 1,000 ML IV SCH (11:00)
[2019-06-08] MEDS: DOCUSATE SODIUM 250 MG CAPSULE PO SCH ×2 (11:26→21:31)
[2019-06-08] MEDS: ENOXAPARIN 40 MG/0.4 ML SYRINGE SUBQ SCH (11:26)
[2019-06-08] MEDS: GABAPENTIN 300 MG CAPSULE PO SCH ×2 (11:26→21:30)
[2019-06-08] MEDS: MAGNESIUM HYDROXIDE 2,400 MG/30 ML UDC PO SCH (11:26)
[2019-06-08] MEDS ORDERED: TERAZOSIN 5 MG CAPSULE PO SCH (21:00)
[2019-06-09] MEDS: ONDANSETRON 4 MG/2 ML VIAL IVP PRN ×2 (01:30→05:47)
[2019-06-09] MEDS ORDERED: ONDANSETRON 4 MG/2 ML VIAL IVP STA (06:26)
[2019-06-09] MEDS ORDERED: PANTOPRAZOLE 40 MG TABLET PO SCH (07:00)
[2019-06-09] MEDS: DOCUSATE SODIUM 250 MG CAPSULE PO SCH (08:25)
[2019-06-09] MEDS: GABAPENTIN 300 MG CAPSULE PO SCH (08:25)
[2019-06-09] MEDS: ENOXAPARIN 40 MG/0.4 ML SYRINGE SUBQ SCH (08:26)
[2019-06-09] MEDS: MAGNESIUM HYDROXIDE 2,400 MG/30 ML UDC PO SCH (08:26)
[2019-06-09] MEDS: SODIUM CHLORIDE FLUSH 0.9% 10 ML SYRINGE IVP PRN (08:31)
[2019-06-09 11:05] VITALS: BP 141/82
--- NOTE | 2019-06-09 12:08 | PROVIDER PROGRESS NOTE ---
Subjective - General Admit Date: 06/03/19 Procedure Date: 06/03/19 Post Op Days: 6 Procedure Performed: open campos's - Review of Systems Wound/Incisions: positive: Healing well, No drainage Drain Type: ostomy- functioning well good gas and stool output General: positive: No symptoms, Fatigue (tired this morning reprots he wasnts to go home so he can sleep) Pulmonary: positive: No symptoms Cardiovascular: positive: No symptoms Gastrointestinal: positive: Abdominal pain (had two small episodes of bleching with vomit last night, came on suddenly no nausea followed coughing. Ostomy has had good output and tolerated food. No pain, urinating without difficulty) Genitourinary: positive: No symptoms, Other (able to urinate this am) Skin: positive: Rash (stable and unchanged) All Other Systems: positive: Reviewed and negative Objective - Patient Data Vital Signs: Vital Signs x48h Temp Pulse Resp BP Pulse Ox 06/09/19 11:03 36.8 C 77 18 141/82 H 92 06/09/19 07:20 36.9 C 76 20 150/78 H 92 06/09/19 05:00 36.6 C 80 16 144/57 H 92 Intake & Output: Intake and Output Totals x24h 06/07/19 06/08/19 06/09/19 23:59 23:59 23:59 Intake Total 2777 3346.667 240 Output Total 1970 1825 1900 Balance 807 1521.667 -1660 - Lab Results Lab Results: 06/07/19 04:30 06/08/19 10:40 - Current Medications Current Medications: Current Medications Generic Name Dose Route Start Last Admin Trade Name Freq PRN Reason Stop Dose Admin Hydrocodone Bitart/Acetaminophen 1 - 2 tab 06/08/19 10:03 06/08/19 21:30 [place] 5/325 PO 1 tab Q4HR PRN Administration PAIN Diphenhydramine HCl 25 mg 06/05/19 17:36 06/07/19 21:11 Benadryl Inj IVP 25 mg Q6H PRN Administration Allergy Symptoms Docusate Sodium 250 mg 06/08/19 11:00 06/09/19 08:25 Colace 250mg Capsule PO 250 mg BID CHRISTIAN Administration Enoxaparin Sodium 40 mg 06/04/19 09:00 06/09/19 08:26 Lovenox SUBQ 40 mg DAILY CHRISTIAN Administration Gabapentin 300 mg 06/08/19 11:00 06/09/19 08:25 Neurontin PO 300 mg BID CHRISTIAN Administration Hydromorphone HCl 0.5 mg 06/03/19 23:19 06/04/19 12:10 Dilaudid Inj Syringe IVP 0.5 mg Q2H PRN Administration PAIN Potassium Chloride/Sodium Chloride 1,000 mls @ 50 mls/hr 06/08/19 11:00 06/08/19 18:09 Normal Saline 0.9% W/40 Meq Kcl IV 50 mls/hr .Q20H CHRISTIAN Administration Magnesium Hydroxide 2,400 mg 06/08/19 11:00 06/09/19 08:26 Milk Of Magnesia PO 2,400 mg DAILY CHRISTIAN Administration Ondansetron HCl 4 mg 06/03/19 23:19 06/09/19 05:47 Zofran Inj IVP 4 mg Q6HR PRN Administration Nausea / Vomiting Pantoprazole Sodium 40 mg 06/09/19 07:00 06/09/19 07:52 Protonix PO 40 mg QDAC CHRISTIAN Administration Phenol/Menthol 1 sprays 06/03/19 23:19 06/04/19 13:09 Chloraseptic MM 1 sprays Q2H PRN Administration Mouth Sore Pain Sodium Chloride 10 ml 06/03/19 23:19 06/09/19 08:31 Normal Saline Flush 0.9% IVP 10 ml PRN PRN Administration NEEDED PER PROVIDER ORDERS Terazosin HCl 5 mg 06/08/19 21:00 06/08/19 21:33 Hytrin PO 5 mg QPM CHRISTIAN Administration - Physical Exam Wound/Incisions: positive: Healing well General Appearance: positive: No acute distress Respiratory: positive: Breath sounds nml Cardiovascular: positive: Regular rate & rhythm Abdomen: positive: Non-tender, Nml bowel sounds, No distention, Other (ostomy has good stool and gas output) Impression/Plan - Problem List Problem List: Post op Yony's doing well plan to d/c home today. Spoke with his about his episodes of vomiting, both she and the patient are comfortable and want to go home today. THey undestand they can call the answering service with any issues. post op instructions provided
--- NOTE | 2019-06-09 12:14 | Discharge Plan ---
Discharge Plan Problem Reviewed?: Yes Disposition: Home, Self Care Condition: Stable Diet: Soft Activity Restrictions: Activity as Tolerated Shower Restrictions: No (no bathing or soaking in a tub for 2 weeks) Assistance Devices: Walker (front wheel walker) Weight Bearing: Full Weight Follow-Up Care: [place] Health - RN (ostomy care), [facility] [place] No Smoking: If you smoke, Please STOP! Call for help. Follow-up with: Marlon Baron MD [Provider Admit Priv/Credential] - 1 Week
--- NOTE | 2019-06-09 12:15 | DISCHARGE SUMMARY ---
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 He did well through surgery and had an uneventful post operative course. He had 3 days of bowel rest, NG tube and IV fluid support and did well by POD #4 he started having some ostomy output and by day 5 had good ostomy output, his NG was removed and he was started on regular diet. He tolerated this well and was deemed stable to discharge home with his and son with ostomy care teaching and front wheel walker (per PT). During his post operative course he had mild urinary retention requiring reinsertion of his graves that resolved by day 5 and the graves was removed. - ALLERGIES Allergies/Adverse Reactions: Allergies Allergy/AdvReac Type Severity Reaction Status Date / Time No Known Drug Allergies Allergy Verified 06/03/19 15:34 - MEDICATIONS Home Medications: Ambulatory Orders Medication Instructions Recorded Confirmed Alendronate [Fosamax] 70 mg PO Q7D 06/03/19 06/04/19 Aspirin Chewable [St Ravi 81 mg PO BID 06/03/19 06/04/19 Aspirin] Gabapentin 300 mg PO BID 06/03/19 06/04/19 Magnesium Hydroxide [Milk of 10 ml DAILY PRN 06/03/19 06/03/19 Magnesia] Omeprazole 20 mg PO DAILY 06/03/19 06/04/19 Senna [Senokot] 34.4 mg PO BID 06/03/19 06/04/19 Simvastatin [Zocor] 10 mg PO QPM 06/03/19 06/04/19 Terazosin HCl 5 mg PO BID 06/03/19 06/04/19 - PHYSICAL EXAM AT DISCHARGE General Appearance: positive: No acute distress Respiratory: positive: Breath sounds nml Cardiovascular: positive: Regular rate & rhythm Abdomen: positive: Non-tender, Nml bowel sounds, No distention - LABS Result Diagrams: 06/07/19 04:30 06/08/19 10:40 - QUALITY (Female Hip Fx Only) Was patient sent home on osteoporosis medication?: No"
--- NOTE | 2019-06-09 12:25 | Discharge Plan ---
Discharge Plan Problem Reviewed?: Yes Disposition: Home, Self Care Condition: Fair Prescriptions: HYDROcod/ACETAM 5/325 [[place] 5/325] 1 - 2 tab PO Q6HR PRN #20 tablet PRN Reason: Pain Docusate Sodium 250Mg Capsule [Colace 250Mg Capsule] 250 mg PO BID #60 capsule Activity Restrictions: Activity as Tolerated Shower Restrictions: No (no bathing or soaking in a tub for 2 weeks) Weight Bearing: Full Weight No Smoking: If you smoke, Please STOP! Call for help. Follow-up with: Marlon Baron MD [Provider Admit Priv/Credential] - 1 Week
== END 2019-06-09 16:00 | disposition home health service (06) | DRG 331 ==
LOC: ED 14:52 → SDS 19:22 → UNDOADMIN 19:23 → MS3 19:23
PROVIDERS: ADMIT Surgery; ATTEND Surgery
PROC: 0D1M0Z4 Bypass Descending Colon to Cutaneous, Open Approach (ICD-10-PCS; 2019-06-03)
PROC: 0DJD4ZZ Inspection of Lower Intestinal Tract, Percutaneous Endoscopic Approach (ICD-10-PCS; 2019-06-03)
PROC: 0DTN0ZZ Resection of Sigmoid Colon, Open Approach (ICD-10-PCS; principal; 2019-06-03 20:30)
DX: K56.2 Volvulus (principal); N99.89 Other postprocedural complications and disorders of genitourinary system; R33.8 Other retention of urine; K59.09 Other constipation; N40.0 Benign prostatic hyperplasia without lower urinary tract symptoms; C61 Malignant neoplasm of prostate; K21.9 Gastro-esophageal reflux disease without esophagitis; H91.90 Unspecified hearing loss, unspecified ear; Z79.899 Other long term (current) drug therapy; Z79.82 Long term (current) use of aspirin
CPT/HCPCS: 36415; 51798; 74177; 80048; 80051; 80053; 81003; 83605; 83690; 83735; 84100; 85025; 93005; 96361; 96365; 96367; 96375; 96376; 97116; 97161; 97165; 97530; 99284; 99285; A9270; J0131; J0330; J1170; J1200; J1650; J3010; J7120; Q9967; 71045; 81001; 87086

== ENCOUNTER 2019-06-03 22:15 | Outpatient (CLI) | payer OTHER | END 2019-06-03 22:16 | disposition critical access hospital (66) | LOC: EMS 22:15 | PROVIDERS: ATTEND Surgery | DX: R10.30 Lower abdominal pain, unspecified (principal); R11.2 Nausea with vomiting, unspecified; R19.8 Other specified symptoms and signs involving the digestive system and abdomen | CPT/HCPCS: A0425; A0429 ==

== ENCOUNTER 2019-10-02 13:55 | Outpatient (CLI) | payer OTHER | END 2019-10-02 13:56 | disposition home or self-care (01) | LOC: LAB 13:55 | PROVIDERS: ATTEND Surgery | DX: Z01.812 Encounter for preprocedural laboratory examination (principal); Z93.3 Colostomy status; Z90.49 Acquired absence of other specified parts of digestive tract; Z20.828 Contact with and (suspected) exposure to other viral communicable diseases ==

== ENCOUNTER 2019-10-06 06:23 | Inpatient (IN) | payer OTHER ==
[~2019-10-06 06:23] MED LIST: LACTATED RINGERS 1,000 ML IV ONE
[2019-10-06] MEDS ORDERED: LIDOCAINE 1%-EPI 1:100000 20 ML MDV ONE (06:59)
[2019-10-06] MEDS ORDERED: BUPIVACAINE 0.5% PF 30 ML VIAL ONE (06:59)
[2019-10-06] MEDS ORDERED: CEFOTETAN DISODIUM 2 GM in SODIUM CHLORIDE 0.9% 100ML 100 ML IV ONE (07:00)
--- NOTE | 2019-10-06 07:28 | ANESTHESIA ---
Pre-Anesthesia VS, & Labs - Diagnosis colostomy s/p bowel resection - Procedure colostomy reversal Height 6 ft Weight (kg) 79 kg Body Mass Index 25.0 - NPO >8 hours - Lab Results Current Lab Results: Laboratory Tests 10/06/19 06:51: POC Whole Bld Glucose 72 Lab results reviewed: Yes Home Medications and Allergies Home Medications: Ambulatory Orders Calcium Carbonate/Vitamin D3 [Calcium 500 mg-Vit D3 600 Unit] 1 each PO DAILY 10/02/19 Cholecalciferol (Vitamin D3) [Vitamin D3] 1,000 unit PO DAILY 10/02/19 Lactobacillus Acidophilus [Probiotic Acidophilus] 1 each PO DAILY 10/02/19 Active Medications Cefotetan Disodium 2 gm/ (Sodium Chloride) 100 mls @ 200 mls/hr IV ONCE ONE Stop: 10/06/19 07:29 Alendronate [Fosamax] 70 mg PO Q7D 06/03/19 Aspirin Chewable [St Ravi Aspirin] 81 mg PO BID 06/03/19 Gabapentin 300 mg PO BID 06/03/19 Omeprazole 20 mg PO DAILY 06/03/19 Simvastatin [Zocor] 10 mg PO QPM 06/03/19 Terazosin HCl 5 mg PO BID 06/03/19 Calcium Carbonate/Vitamin D3 [Calcium 500 mg-Vit D3 600 Unit] 1 each PO DAILY 10/02/19 Cholecalciferol (Vitamin D3) [Vitamin D3] 1,000 unit PO DAILY 10/02/19 Lactobacillus Acidophilus [Probiotic Acidophilus] 1 each PO DAILY 10/02/19 Allergies/Adverse Reactions: Allergies Allergy/AdvReac Type Severity Reaction Status Date / Time soap Allergy Rash Verified 10/02/19 13:02 Anes History & Medical History - Anesthetic History Anesthesia Complications: reports: No previous complications Family history of Anesthesia Complications: Denies Family history of Malignant Hyperthermia: Denies - Medical History Cardiovascular: reports: High cholesterol, Pulmonary embolism Pulmonary: reports: None Gastrointestinal: reports: GERD, Chronic constipation, Other Urinary: reports: Benign prostate hypertrophy, Other Neuro: reports: None Musculoskeletal: reports: None Endocrine/Autoimmune: reports: None Blood Disorders: reports: None Skin: reports: None Smoking Status: Never smoker - Surgical History General: Bowel surgery, Other Eyes Ears Nose Throat (EENT): Other Urologic: Prostatic surgery Exam General: Alert, Oriented x3, Cooperative Dental: Dentures full Upper, Dentures full Lower Mouth Opening: Greater than 4 Fingerbreadths Neck Mobility: Normal Mallampati classification: II Thyromental Distance: greater than 6 cm Respiratory: Lungs clear, Normal breath sounds Cardiovascular: Regular rate (occasional pvc) Neurological: Normal speech Mental/Cognitive Status: Alert/Oriented X3, Normal for patient Cognitive Status: Within normal limits Plan Anesthesia Type: General, Epidural Regional Block: Per Surgeon's request for Post Op pain control Consent for Procedure(s) Verified and Reviewed: Yes Code Status: Attempt Resuscitation ASA classification: 2-Mild systemic disease Is this case an emergency?: No
[2019-10-06] MEDS ORDERED: PROPOFOL 200 MG/20 ML VIAL IVP ONE (07:35)
[2019-10-06] MEDS ORDERED: GLYCOPYRROLATE 1 MG/5 ML VIAL IVP ONE (07:35)
[2019-10-06] MEDS ORDERED: DEXAMETHASONE 4 MG/ML VIAL IVP ONE (07:35)
[2019-10-06] MEDS ORDERED: ROCURONIUM 50 MG/5 ML VIAL IVP ONE (07:35)
[2019-10-06] MEDS ORDERED: ONDANSETRON 4 MG/2 ML VIAL IVP ONE (07:35)
[2019-10-06] MEDS ORDERED: ACETAMINOPHEN 1,000 MG/100 ML 100 ML IV ONE (07:35)
[2019-10-06] MEDS ORDERED: MIDAZOLAM 2 MG/2 ML VIAL IVP ONE (07:35)
[2019-10-06] MEDS ORDERED: ePHEDrine 50 MG/ML VIAL IVP ONE (07:35)
[2019-10-06] MEDS ORDERED: PHENYLEPHRINE 10 MG/ML VIAL IV ONE (07:35)
[2019-10-06] MEDS ORDERED: LIDOCAINE-MPF 2% 5 ML VIAL IM ONE ×2 (07:35)
[2019-10-06] MEDS ORDERED: fentaNYL 100 MCG/2 ML VIAL IVP ONE (07:35)
[2019-10-06] MEDS ORDERED: NALBUPHINE 10 MG/ML AMP IVP PRN (08:10)
[2019-10-06] MEDS ORDERED: ROPIVACAINE 0.2% 200 MG/100 ML BAG EP PRN (08:10)
--- NOTE | 2019-10-06 09:06 | PHARMACY PROGRESS NOTE ---
- Best Possible Medication History Admit Date and Time: 10/06/19 0623 Processed by: Nursing Medication History completed: Yes As the person ultimately responsible for medication therapy, providers are able to order a medication from an existing home medication list in [facility] via the "Reconcile Routine" prior to Confirmation of that medication by office support clerk. Such practice is discouraged except when the physician, in their clinical judgment, deems that a medical need exists for a medication without regard to previous use.
[2019-10-06] MEDS ORDERED: SUGAMMADEX 200 MG/2 ML VIAL IVP ONE (09:52)
[2019-10-06] MEDS ORDERED: LACTATED RINGERS 1,000 ML IV ONE (10:39)
[2019-10-06] MEDS: HYDROmorphone 1 MG/ML CARPUJECT ONE ×2 (10:57→11:09)
[2019-10-06] MEDS ORDERED: BUPIVACAINE 0.25% PF 10 ML VIAL ONE (11:21)
[2019-10-06] MEDS ORDERED: fentaNYL 100 MCG/2 ML VIAL ONE (11:23)
[2019-10-06] MEDS ORDERED: BUPIVACAINE 0.25% PF 30 ML VIAL ONE (11:37)
--- NOTE | 2019-10-06 12:38 | ANESTHESIA PROCEDURE NOTE ---
Anesthesia Epidural Template - Patient Report Patient Reports: positive: Inadequate control - Other Comments Other Comments: Called to pacu for pt c/o pain. Epidural rate increased to 7ml/hr and epidural bolused with 5ml of 0.25% bupivicaine and 100mcg of fentanyl. Patient reported improvement in pain.
--- NOTE | 2019-10-06 12:47 | OPERATIVE REPORT ---
DATE OF SERVICE: 10/06/2019 Physician: Marlon Baron MD DATE OF PROCEDURE: 10/06/2019 PREOPERATIVE DIAGNOSIS 1. History of sigmoid volvulus colostomy and Ranjit's pouch. 2. Unwanted colostomy. POSTOPERATIVE DIAGNOSIS 1. History of sigmoid volvulus colostomy and Ranjit's pouch. 2. Unwanted colostomy. PROCEDURE PERFORMED: Colostomy takedown. SURGEON: Marlon Baron MD STOCKBROKER: Trav Jacobo MD ANESTHESIA 1. General endotracheal anesthesia. 2. Epidural. ESTIMATED BLOOD LOSS: Less than 50 mL DRAINS: None. COMPLICATIONS: None. FINDINGS: A 29 EEA anastomosis performed without tension. A good anastomosis checked with fluid in the abdomen and air in the rectum and colon. SPECIMEN: EEA rings sent for pathology. INDICATIONS FOR PROCEDURE: The patient is a very vigorous 88-year-old gentleman who presented a few months ago in distress with a sigmoid volvulus. He underwent a colectomy with colostomy. He is back to usual health. He presents for colostomy closure. Risks discussed, alternatives discussed. All questions answered and consent obtained. DESCRIPTION OF PROCEDURE: The patient was properly identified, brought to the operating room and jennifer esther in supine position. Sequential compression devices were placed. General endotracheal anesthesia was induced. He was repositioned in lithotomy. A Lugo catheter was placed. The stoma was closed with a pursestring 2-0 silk suture. The patient was prepped and draped in a sterile fashion and give n preoperative antibiotics. He did have a bowel prep the day prior. An upper midline incision was m sully and extended in the right lateral of the umbilicus and down towards the pubis. The abdomen was o pened sharply. Dr. Jacobo assisted with proper exposure, dissection as well as performing the EEA an astomosis. The mid left colon was mobilized beneath the stoma site. The colon was then divided at t he abdominal wall with a YARA stapler. The left colon was partially mobilized along the white line of Toldt. The splenic flexure was not taken down. The distal Ranjit's pouch stump was then identifi ed and mobilized again along the white line of Toldt. The mesentery was slightly taken down with cla mps and 2-0 Vicryl tie. Both ends were healthy, viable and anastomosis could be performed without te nsion. The staple line was removed from the mid descending colon and colon sized for a size 29 EEA s tapler. The 29 EEA anvil was secured with a 2-[address] Jacobo then went be low, performed an exam and inserted the EEA stapler. An EEA anastomosis was performed without tensio n and without difficulty. The anastomosis was tested with Betadine solution within the distal colon followed by air in the distal colon and saline in the pelvis. There was no leak. The abdomen was th oroughly irrigated. Counts were correct. Fascia beneath the prior stoma site was closed with a runn ing #1 PDS suture. The midline fascia was closed with 2 running #1 PDS suture. Subcutaneous tissue was irrigated and skin closed with azeem. The remainder of the stoma was removed with careful elec trocautery. Gloves were changed and new instruments were brought up for closure purposes. Subcutane ous tissue at the prior stoma site was again irrigated and deep subcutaneous tissue closed with inter rupted 2-0 Vicryl suture. The fascia was previously closed with a #1 PDS suture. Skin was loosely r eapproximated with vertical mattress 3-0 nylon sutures. Dressings were applied. He tolerated the pr ocedure very well. TD: 10/06/2019 11:19
[2019-10-06] MEDS: LACTATED RINGERS 1,000 ML IV SCH ×2 (13:48→17:02)
[2019-10-06] MEDS: ACETAMINOPHEN 325 MG TABLET PO SCH ×3 (13:53→20:18)
[2019-10-06] MEDS: ceFAZolin 2 GM in SODIUM CHLORIDE 0.9% 100ML 100 ML IV SCH (16:54)
[2019-10-06] MEDS: metroNIDAZOLE 500 MG/100 ML 500 MG/100 ML BAG IV SCH (17:02)
[2019-10-06] MEDS ORDERED: ONDANSETRON 4 MG/2 ML VIAL ONE (19:09)
[2019-10-06] MEDS: ROPIVACAINE 0.2% 200 MG/100 ML BAG EP PRN (22:31)
[2019-10-07] MEDS: ceFAZolin 2 GM in SODIUM CHLORIDE 0.9% 100ML 100 ML IV SCH ×2 (00:07→00:12)
[2019-10-07] MEDS: ACETAMINOPHEN 325 MG TABLET PO SCH ×6 (00:59→21:43)
[2019-10-07] MEDS: metroNIDAZOLE 500 MG/100 ML 500 MG/100 ML BAG IV SCH (01:00)
[2019-10-07] MEDS: ONDANSETRON 4 MG/2 ML VIAL IVP PRN (01:00)
[2019-10-07] MEDS: HEPARIN 5,000 UNIT/ML VIAL SUBQ SCH ×2 (09:27→21:40)
[2019-10-07] MEDS: LACTATED RINGERS 1,000 ML IV SCH (09:28)
[2019-10-07] MEDS: ROPIVACAINE 0.2% 200 MG/100 ML BAG EP PRN ×2 (10:51→23:28)
--- NOTE | 2019-10-07 18:15 | PROVIDER PROGRESS NOTE ---
Subjective - Prog Note Date Prog Note Date: 10/07/19 - Subjective Subjective: tolerating diet. denies nausea. comfortable Objective - Vital Signs/Intake & Output Vital Signs: Vital Signs x48h Temp Pulse Pulse Resp BP Pulse Ox 10/07/19 17:36 36.5 C 60 16 100 10/07/19 15:43 36.5 C 63 16 152/70 H 100 10/07/19 12:00 37.2 C 69 16 145/72 H 95 10/07/19 10:16 59 L 131/57 H Intake & Output: Intake & Output 10/04/19 10/05/19 10/06/19 10/07/19 23:59 23:59 23:59 23:59 Intake Total 3322.5 3300 Output Total 1500 550 Balance 1822.5 2750 - Objective General Appearance: positive: No acute distress, Alert Eyes Bilateral: positive: Normal inspection, PERRL, EOMI Neck: positive: No JVD, Trachea midline Respiratory: positive: No respiratory distress Abdomen: positive: Non-tender, No distention Extremities: positive: No pedal edema - Lab Results Other Labs: Lab Results x24hrs 10/07/19 10/07/19 10/07/19 Range/Units 16:38 11:36 07:30 POC Whole Bld Glucose 116 H 107 H 115 H (70 - 100) mg/dL 10/06/19 Range/Units 21:03 POC Whole Bld Glucose 158 H (70 - 100) mg/dL Assessment/Plan - Problem List (1) Sigmoid volvulus Impression: History sigmoid volvulus and colectomy/ colostomy. Post op day 1 colostomy closure. Doing exceptionally well. Lugo out. D/C ivf. diet as tolerated
[2019-10-07] MEDS: ATORVASTATIN 10 MG TABLET PO SCH (21:42)
[2019-10-07] MEDS: GABAPENTIN 300 MG CAPSULE PO SCH (21:43)
[2019-10-07] MEDS: TERAZOSIN 1 MG CAPSULE PO SCH (21:46)
[2019-10-08] MEDS: ACETAMINOPHEN 325 MG TABLET PO SCH ×6 (01:00→21:16)
[2019-10-08] MEDS: PANTOPRAZOLE 40 MG TABLET PO SCH (06:12)
[2019-10-08] MEDS: HEPARIN 5,000 UNIT/ML VIAL SUBQ SCH ×2 (08:29→22:49)
[2019-10-08] MEDS: ROPIVACAINE 0.2% 200 MG/100 ML BAG EP PRN (09:55)
[2019-10-08] MEDS: diphenhydrAMINE 25 MG CAPSULE PO PRN ×2 (11:15→16:01)
--- NOTE | 2019-10-08 11:17 | ANESTHESIA PROCEDURE NOTE ---
Anesthesia Epidural Template - Patient Report Patient Reports: positive: Pain controlled - Exam Epidural Medication Information: Epidural Medications Medication ropivicaine Continuous Infusion Rate (mL/ 7 hr) Demand Dose Setting 3 Bolus Amount 0 Infused Amount 8 - Plan Plan: positive: Continue current management - Other Comments Other Comments: Evaluated patient with post op epidural. Patient reports a rash to extremities and chest/abdomen. He reports he had the same rash with previous admission and at home they use allergen free laundry soap. I suspect it is contact dermatitis from the hospital linens. Otherwise, he reports good pain control with epidural. Plan on removal tomorrow. Will need to hold the am dose of heparin but can resume after the catheter has been removed.
--- NOTE | 2019-10-08 13:15 | PROVIDER PROGRESS NOTE ---
Subjective - Prog Note Date Prog Note Date: 10/08/19 - Subjective Pt reports feeling: No change (more bloated today. no nausea. graves replaced due to retention) Objective - Vital Signs/Intake & Output Vital Signs: Vital Signs x48h Temp Pulse Resp BP Pulse Ox 10/08/19 12:00 35.5 C L 72 18 122/64 95 10/08/19 07:27 36.4 C L 68 18 141/71 H 94 Intake & Output: Intake & Output 10/05/19 10/06/19 10/07/19 10/08/19 23:59 23:59 23:59 23:59 Intake Total 3322.5 4095 1350 Output Total 4820 418 6902 Balance 1822.5 3170 50 - Objective General Appearance: positive: No acute distress, Alert Eyes Bilateral: positive: Normal inspection, PERRL, EOMI Neck: positive: No JVD Respiratory: positive: No respiratory distress Rectal: positive: Non-tender, Other (moderate distension. Dressing c/d/i. no erythema) - Lab Results Other Labs: Lab Results x24hrs 10/08/19 10/08/19 10/07/19 Range/Units 11:31 07:24 16:38 POC Whole Bld Glucose 133 H 94 116 H (70 - 100) mg/dL Assessment/Plan - Problem List (1) Sigmoid volvulus Impression: doing well pod 2 colostomy closure. ileus and distension. diet as tolerated. graves replaced due to retention. continue present care. perhaps graves out again late tomorrow.
[2019-10-08] MEDS: traMADol 50 MG TABLET PO PRN (20:39)
--- NOTE | 2019-10-08 21:12 | CONSULTATION NOTE ---
Consultation Report: Called to room for discovery of disconnected catheter at hub after patient had been up to chair. Epidural discontinued and removed at this time. Tip intact, site without redness, swelling, no blood. Oral pain meds ordered by surgeon. Pt tolerated procedure and denied pain at present time.
[2019-10-08] MEDS: GABAPENTIN 300 MG CAPSULE PO SCH (21:13)
[2019-10-08] MEDS: ATORVASTATIN 10 MG TABLET PO SCH (21:14)
[2019-10-08] MEDS: TERAZOSIN 1 MG CAPSULE PO SCH (21:18)
[2019-10-09] MEDS: traMADol 50 MG TABLET PO PRN ×3 (00:28→18:29)
[2019-10-09] MEDS: ONDANSETRON 4 MG/2 ML VIAL IVP PRN ×3 (00:30→13:45)
[2019-10-09] MEDS: ACETAMINOPHEN 325 MG TABLET PO SCH ×6 (01:19→22:41)
[2019-10-09] MEDS: PANTOPRAZOLE 40 MG TABLET PO SCH (07:12)
[2019-10-09] MEDS: HEPARIN 5,000 UNIT/ML VIAL SUBQ SCH ×2 (08:57→22:47)
[2019-10-09] MEDS: MAG HYDROX/AL HYDROX/SIMETH 30 ML UDC PO PRN (13:46)
--- NOTE | 2019-10-09 14:49 | PROVIDER PROGRESS NOTE ---
Subjective - Prog Note Date Prog Note Date: 10/09/19 - Subjective Pt reports feeling: Improved (had nausea and vomiting earlier today. feeling better this afternoon) Objective - Vital Signs/Intake & Output Vital Signs: Vital Signs x48h Temp Pulse Resp BP Pulse Ox 10/09/19 12:00 36.7 C 16 105/64 99 10/09/19 07:48 36.7 C 88 12 120/68 88 L Intake & Output: Intake & Output 10/06/19 10/07/19 10/08/19 10/09/19 23:59 23:59 23:59 23:59 Intake Total 3322.5 4095 1990 250 Output Total 6103 545 6450 1275 Balance 1822.5 3170 40 -1025 - Objective General Appearance: positive: No acute distress, Alert Eyes Bilateral: positive: PERRL, EOMI ENT: positive: No signs of dehydration Neck: positive: No JVD Respiratory: positive: No respiratory distress Abdomen: positive: Non-tender, Other (mild distension. dressings c/d/i. no erythema) - Lab Results Other Labs: Lab Results x24hrs 10/08/19 Range/Units 16:30 POC Whole Bld Glucose 105 H (70 - 100) mg/dL Assessment/Plan - Problem List (1) Sigmoid volvulus Impression: post op day 3 colostomy closure. n/v earlier today. He has had another bm and is feeling better. Lugo out. diet as tolerated. straight cath as needed if he has further urinary retention
[2019-10-09] MEDS: diphenhydrAMINE 25 MG CAPSULE PO PRN (15:09)
[2019-10-09 16:12] LABS: BASOPHILS % (AUTO) 0.3 %; EOSINOPHILS # (AUTO) 0.1 10^3/uL (0.0-0.7); HGB - HEMOGLOBIN 12.1 g/dL (14.0-18.0); LYMPHOCYTES # (AUTO) 1.2 10^3/uL (1.5-3.5); LYMPHOCYTES % (AUTO) 11.2 %; MEAN CORPUSCULAR HEMOGLOBIN 30.6 pg (27.0-31.0); MEAN CORPUSCULAR HGB CONC 32.8 g/dL (32.0-36.0); MEAN CORPUSCULAR VOLUME 93.4 fL (80.0-94.0); MEAN PLATELET VOLUME 10.2 fL (7.4-11.4); MONOCYTES # (AUTO) 0.6 10^3/uL (0.0-1.0); MONOCYTES % (AUTO) 5.1 %; NEUTROPHILS # (AUTO) 8.9 10^3/uL (1.5-6.6); NEUTROPHILS % (AUTO) 81.9 %; PLT - PLATELET COUNT 208 10^3/uL (130-450); RED BLOOD COUNT 3.95 10^6/uL (4.70-6.10); RED CELL DISTRIBUTION WIDTH 13.1 % (12.0-15.0); WHITE BLOOD COUNT 10.9 x10^3/uL (4.8-10.8)
[2019-10-09] MEDS: ATORVASTATIN 10 MG TABLET PO SCH (22:41)
[2019-10-09] MEDS: GABAPENTIN 300 MG CAPSULE PO SCH (22:41)
[2019-10-09] MEDS: TERAZOSIN 1 MG CAPSULE PO SCH (22:44)
[2019-10-09] MEDS: SODIUM CHLORIDE FLUSH 0.9% 10 ML SYRINGE IVP PRN (23:45)
[2019-10-10] MEDS: ACETAMINOPHEN 325 MG TABLET PO SCH ×6 (03:17→22:32)
[2019-10-10 05:22] LABS: BASOPHILS % (AUTO) 0.2 %; EOSINOPHILS # (AUTO) 0.4 10^3/uL (0.0-0.7); EOSINOPHILS % (AUTO) 3.4 %; HGB - HEMOGLOBIN 11.2 g/dL (14.0-18.0); LYMPHOCYTES # (AUTO) 1.3 10^3/uL (1.5-3.5); LYMPHOCYTES % (AUTO) 11.2 %; MEAN CORPUSCULAR HEMOGLOBIN 30.9 pg (27.0-31.0); MEAN CORPUSCULAR HGB CONC 32.9 g/dL (32.0-36.0); MEAN CORPUSCULAR VOLUME 93.7 fL (80.0-94.0); MEAN PLATELET VOLUME 10.2 fL (7.4-11.4); MONOCYTES # (AUTO) 0.6 10^3/uL (0.0-1.0); MONOCYTES % (AUTO) 5.6 %; NEUTROPHILS % (AUTO) 79.2 %; PLT - PLATELET COUNT 219 10^3/uL (130-450); RED BLOOD COUNT 3.63 10^6/uL (4.70-6.10); RED CELL DISTRIBUTION WIDTH 13.2 % (12.0-15.0); WHITE BLOOD COUNT 11.3 x10^3/uL (4.8-10.8)
[2019-10-10] MEDS: PANTOPRAZOLE 40 MG TABLET PO SCH (06:04)
[2019-10-10] MEDS: diphenhydrAMINE 25 MG CAPSULE PO PRN ×3 (06:04→23:41)
[2019-10-10] MEDS ORDERED: LACTATED RINGERS 500 ML IV ONE (06:37)
[2019-10-10] MEDS: SODIUM CHLORIDE FLUSH 0.9% 10 ML SYRINGE IVP PRN ×2 (07:04→23:41)
[2019-10-10] MEDS: HEPARIN 5,000 UNIT/ML VIAL SUBQ SCH ×2 (09:24→22:33)
[2019-10-10] MEDS ORDERED: DEXTROSE 5%-0.9% NACL 1,000 ML IV STA (12:20)
[2019-10-10] MEDS ORDERED: BISACODYL 10 MG SUPP PR SCH (12:21)
[2019-10-10] MEDS: METOCLOPRAMIDE 10 MG/2 ML VIAL IVP SCH ×3 (12:53→23:40)
--- NOTE | 2019-10-10 18:47 | PROVIDER PROGRESS NOTE ---
Subjective - General Admit Date: 10/06/19 Procedure Date: 10/06/19 Post Op Days: 4 Procedure Performed: Ostomy reversal - Review of Systems Wound/Incisions: positive: Dressing dry and intact Drain Type: NOne General: positive: No symptoms HEENT: positive: No symptoms Pulmonary: positive: No symptoms Cardiovascular: positive: No symptoms Gastrointestinal: positive: Nausea, Abdominal pain, Other (Bowel movement yesterday but continues to complain of distension and hiccups). negative: Vomiting Genitourinary: positive: No symptoms Musculoskeletal: positive: No symptoms Skin: positive: No symptoms - Other Other Information/Narrative: Mr. Srivastava is in good spirits. He was up walking early this morning but reports he doesn't have any appetite. He feels the food he is being offered is just to heavy and would prefer to have yogurt. Struggling with hiccups when he tries to take a deep breath. Pain is under control Objective - Patient Data Reviewed Vital Signs: Yes Vital Signs: Vital Signs x48h Temp Pulse Resp BP Pulse Ox 10/10/19 15:55 36.6 C 71 16 131/73 H 92 10/10/19 13:00 36.8 C 80 16 110/61 96 Intake & Output: Intake and Output Totals x24h 10/08/19 10/09/19 10/10/19 23:59 23:59 23:59 Intake Total 2513 516 7003 Output Total 1950 1275 250 Balance 40 -788 1260 - Lab Results Lab Results: 10/10/19 04:50 Other Lab Results: Lab Results x24hrs 10/10/19 Range/Units 04:50 WBC 11.3 H (4.8-10.8) x10^3/uL RBC 3.63 L (4.70-6.10) 10^6/uL Hgb 11.2 L (14.0-18.0) g/dL Hct 34.0 L (42.0-52.0) % MCV 93.7 (80.0-94.0) fL MCH 30.9 (27.0-31.0) pg MCHC 32.9 (32.0-36.0) g/dL RDW 13.2 (12.0-15.0) % Plt Count 219 (130-450) 10^3/uL MPV 10.2 (7.4-11.4) fL Neut # (Auto) 9.0 H (1.5-6.6) 10^3/uL Lymph # (Auto) 1.3 L (1.5-3.5) 10^3/uL [place] # (Auto) 0.6 (0.0-1.0) 10^3/uL Eos # (Auto) 0.4 (0.0-0.7) 10^3/uL Baso # (Auto) 0.0 (0.0-0.1) 10^3/uL Absolute Nucleated RBC 0.00 x10^3/uL Nucleated RBC % 0.0 /100WBC - Current Medications Current Medications: Current Medications Generic Name Dose Route Start Last Admin Trade Name Freq PRN Reason Stop Dose Admin Acetaminophen 650 mg 10/10/19 03:00 10/10/19 16:41 Tylenol PO 650 mg Q4H CHRISTIAN Administration Al Hydroxide/Mg Hydroxide 30 ml 10/09/19 12:47 10/09/19 13:46 Mylanta Plus PO 30 ml Q4HR PRN Administration INDIGESTION Atorvastatin Calcium 5 mg 10/07/19 21:00 10/09/19 22:41 Lipitor PO 5 mg QPM CHRISTIAN Administration Diphenhydramine HCl 25 mg 10/08/19 10:56 10/10/19 06:04 Benadryl PO 25 mg Q4HR PRN Administration Allergy Symptoms Gabapentin 300 mg 10/07/19 21:00 10/09/19 22:41 Neurontin PO 300 mg QPM CHRISTIAN Administration Heparin Sodium (Porcine) 5,000 unit 10/07/19 09:00 10/10/19 09:24 SUBQ 5,000 unit BID CHRISTIAN Administration Ropivacaine 200 mg in 100 mls @ 0 mls/hr 10/06/19 12:36 10/08/19 09:55 Naropin 0.2% EP 7 mls/hr PRN PRN Administration PAIN Protocol Per Protocol Dextrose/Sodium Chloride 1,000 mls @ 100 mls/hr 10/10/19 12:20 10/10/19 12:54 D5ns IV 10/10/19 22:19 100 mls/hr .Q10H STA Administration Metoclopramide HCl 5 mg 10/10/19 13:00 10/10/19 12:53 Reglan Inj IVP 5 mg Q6HR CHRISTIAN Administration Ondansetron HCl 4 mg 10/06/19 08:10 10/09/19 13:45 Zofran Inj IVP 4 mg Q6HR PRN Administration Nausea / Vomiting Pantoprazole Sodium 40 mg 10/08/19 07:00 10/10/19 06:04 Protonix PO 40 mg QDAC CHRISTIAN Administration Sodium Chloride 10 ml 10/10/19 01:06 10/10/19 07:04 Normal Saline Flush 0.9% IVP 10 ml PRN PRN Administration NEEDED PER PROVIDER ORDERS Terazosin HCl 5 mg 10/07/19 21:00 10/09/19 22:44 Hytrin PO Not Given QPM CHRISTIAN Tramadol HCl 50 mg 10/08/19 20:26 10/09/19 18:29 Ultram PO 50 mg Q4HR PRN Administration PAIN - Physical Exam Wound/Incisions: positive: Other (occlusive dressing in place) General Appearance: positive: No acute distress Eyes Bilateral: positive: Normal inspection ENT: positive: ENT inspection nml Neck: positive: Nml inspection Respiratory: positive: Chest non-tender, No respiratory distress, Breath sounds nml. negative: Wheezes, Rales, Rhonchi Cardiovascular: positive: Regular rate & rhythm Abdomen: positive: Other (Distended but still soft with scattered bowel sounds) Back: positive: Nml inspection Skin: positive: Color nml Extremities: positive: Non-tender Neurologic/Psychiatric: positive: Oriented x3 ABX Reporting Has patient been on IV antibiotics over the past 48 hours?: No Impression/Plan - Problem List Problem List: Ostomy reversal with ileus following surgery. Will add reglan and decrease diet to full liquids so that the patient can have the food the sounds good to him. Restart IV fluid as po intake has been minimal and uop inadequate for the last 18 hours Pain is well controlled Continue ambulation Recheck labs in the AM
[2019-10-10] MEDS: traMADol 50 MG TABLET PO PRN (19:40)
[2019-10-10] MEDS: ATORVASTATIN 10 MG TABLET PO SCH (22:31)
[2019-10-10] MEDS: GABAPENTIN 300 MG CAPSULE PO SCH (22:32)
[2019-10-10] MEDS: TERAZOSIN 1 MG CAPSULE PO SCH (22:34)
[2019-10-11] MEDS: ACETAMINOPHEN 325 MG TABLET PO SCH ×6 (02:54→23:11)
[2019-10-11] MEDS: PANTOPRAZOLE 40 MG TABLET PO SCH (05:58)
[2019-10-11] MEDS: METOCLOPRAMIDE 10 MG/2 ML VIAL IVP SCH ×4 (05:58→23:59)
[2019-10-11] MEDS: SODIUM CHLORIDE FLUSH 0.9% 10 ML SYRINGE IVP PRN ×3 (05:59→18:02)
[2019-10-11 06:31] LABS: BASOPHILS % (AUTO) 0.3 %; EOSINOPHILS # (AUTO) 0.6 10^3/uL (0.0-0.7); EOSINOPHILS % (AUTO) 7.2 %; HGB - HEMOGLOBIN 10.9 g/dL (14.0-18.0); LYMPHOCYTES # (AUTO) 2.2 10^3/uL (1.5-3.5); LYMPHOCYTES % (AUTO) 28.5 %; MEAN CORPUSCULAR HEMOGLOBIN 30.6 pg (27.0-31.0); MEAN CORPUSCULAR VOLUME 92.7 fL (80.0-94.0); MEAN PLATELET VOLUME 10.2 fL (7.4-11.4); MONOCYTES # (AUTO) 0.5 10^3/uL (0.0-1.0); MONOCYTES % (AUTO) 6.5 %; NEUTROPHILS # (AUTO) 4.5 10^3/uL (1.5-6.6); NEUTROPHILS % (AUTO) 57.2 %; PLT - PLATELET COUNT 200 10^3/uL (130-450); RED BLOOD COUNT 3.56 10^6/uL (4.70-6.10); RED CELL DISTRIBUTION WIDTH 13.1 % (12.0-15.0); WHITE BLOOD COUNT 7.9 x10^3/uL (4.8-10.8)
[2019-10-11 06:42] LABS: ALBUMIN/GLOBULIN RATIO 1.1 (1.0-2.2); ALKALINE PHOSPHATASE 60 IU/L (42-121); ALT ALANINE AMINOTRANSFERASE 23 IU/L (10-60); AST ASPARTATE AMINOTRANSFERASE 43 IU/L (10-42); BILIRUBIN,TOTAL 0.7 mg/dL (0.2-1.0); BUN - BLOOD UREA NITROGEN 25 mg/dL (6-20); CALCIUM 8.6 mg/dL (8.5-10.3); CARBON DIOXIDE - CO2 28 mmol/L (21-32); CHLORIDE 97 mmol/L (101-111); CREATININE 0.9 mg/dL (0.6-1.2); GLUCOSE 112 mg/dL (70-100); SODIUM 132 mmol/L (135-145); TOTAL PROTEIN 5.8 g/dL (6.7-8.2)
[2019-10-11] MEDS: HEPARIN 5,000 UNIT/ML VIAL SUBQ SCH ×2 (08:00→21:12)
--- NOTE | 2019-10-11 08:49 | PROVIDER PROGRESS NOTE ---
Subjective - General Admit Date: 10/06/19 Procedure Date: 10/06/19 Post Op Days: 5 Procedure Performed: Ostomy reversal - Review of Systems Wound/Incisions: positive: Healing well, Other (occlusive dressing in place) Drain Type: NOne General: positive: No symptoms HEENT: positive: No symptoms Pulmonary: positive: No symptoms Cardiovascular: positive: No symptoms Gastrointestinal: positive: Nausea, Abdominal pain, Other (Bowel movement yesterday but continues to complain of distension and hiccups). negative: Vomiting Genitourinary: positive: No symptoms Musculoskeletal: positive: No symptoms Skin: positive: No symptoms - Other Other Information/Narrative: Mr Srivastava reports his belly feels "ok" today. No flatus or bowel movement yest erday. Somewhat improved hiccups. Objective - Patient Data Reviewed Vital Signs: Yes Vital Signs: Vital Signs x48h Temp Pulse Resp BP Pulse Ox 10/11/19 02:56 36.8 C 79 16 121/59 L 91 L Intake & Output: Intake and Output Totals x24h 10/09/19 10/10/19 10/11/19 23:59 23:59 23:59 Intake Total 487 2841 250 Output Total 1275 650 400 Balance -788 2191 -150 - Lab Results Lab Results: 10/11/19 06:15 10/11/19 06:15 Other Lab Results: Lab Results x24hrs 10/11/19 10/11/19 Range/Units 06:15 06:15 WBC 7.9 (4.8-10.8) x10^3/uL RBC 3.56 L (4.70-6.10) 10^6/uL Hgb 10.9 L (14.0-18.0) g/dL Hct 33.0 L (42.0-52.0) % MCV 92.7 (80.0-94.0) fL MCH 30.6 (27.0-31.0) pg MCHC 33.0 (32.0-36.0) g/dL RDW 13.1 (12.0-15.0) % Plt Count 200 (130-450) 10^3/uL MPV 10.2 (7.4-11.4) fL Neut # (Auto) 4.5 (1.5-6.6) 10^3/uL Lymph # (Auto) 2.2 (1.5-3.5) 10^3/uL [place] # (Auto) 0.5 (0.0-1.0) 10^3/uL Eos # (Auto) 0.6 (0.0-0.7) 10^3/uL Baso # (Auto) 0.0 (0.0-0.1) 10^3/uL Absolute Nucleated RBC 0.00 x10^3/uL Nucleated RBC % 0.0 /100WBC Sodium 132 L (135-145) mmol/L Potassium 3.6 (3.5-5.0) mmol/L Chloride 97 L (101-111) mmol/L Carbon Dioxide 28 (21-32) mmol/L Anion Gap 7.0 (6-13) BUN 25 H (6-20) mg/dL Creatinine 0.9 (0.6-1.2) mg/dL Estimated GFR (MDRD) 80 L (>89) Glucose 112 H (70-100) mg/dL Calcium 8.6 (8.5-10.3) mg/dL Ionized Calcium NO Total Bilirubin 0.7 (0.2-1.0) mg/dL AST 43 H (10-42) IU/L ALT 23 (10-60) IU/L Alkaline Phosphatase 60 (42-121) IU/L Total Protein 5.8 L (6.7-8.2) g/dL Albumin 3.0 L (3.2-5.5) g/dL Globulin 2.8 (2.1-4.2) g/dL Albumin/Globulin Ratio 1.1 (1.0-2.2) - Current Medications Current Medications: Current Medications Generic Name Dose Route Start Last Admin Trade Name Freq PRN Reason Stop Dose Admin Acetaminophen 650 mg 10/10/19 03:00 10/11/19 06:59 Tylenol PO 650 mg Q4H CHRISTIAN Administration Al Hydroxide/Mg Hydroxide 30 ml 10/09/19 12:47 10/09/19 13:46 Mylanta Plus PO 30 ml Q4HR PRN Administration INDIGESTION Atorvastatin Calcium 5 mg 10/07/19 21:00 10/10/19 22:31 Lipitor PO 5 mg QPM CHRISTIAN Administration Diphenhydramine HCl 25 mg 10/08/19 10:56 10/10/19 23:41 Benadryl PO 25 mg Q4HR PRN Administration Allergy Symptoms Gabapentin 300 mg 10/07/19 21:00 10/10/19 22:32 Neurontin PO 300 mg QPM CHRISTIAN Administration Heparin Sodium (Porcine) 5,000 unit 10/07/19 09:00 10/10/19 22:33 SUBQ 5,000 unit BID CHRISTIAN Administration Ropivacaine 200 mg in 100 mls @ 0 mls/hr 10/06/19 12:36 10/08/19 09:55 Naropin 0.2% EP 7 mls/hr PRN PRN Administration PAIN Protocol Per Protocol Ondansetron HCl 4 mg 10/06/19 08:10 10/09/19 13:45 Zofran Inj IVP 4 mg Q6HR PRN Administration Nausea / Vomiting Pantoprazole Sodium 40 mg 10/08/19 07:00 10/11/19 05:58 Protonix PO 40 mg QDAC CHRISTIAN Administration Sodium Chloride 10 ml 10/10/19 01:06 10/11/19 05:59 Normal Saline Flush 0.9% IVP 10 ml PRN PRN Administration NEEDED PER PROVIDER ORDERS Terazosin HCl 5 mg 10/07/19 21:00 10/10/19 22:34 Hytrin PO 5 mg QPM CHRISTIAN Administration Tramadol HCl 50 mg 10/08/19 20:26 10/10/19 19:40 Ultram PO 50 mg Q4HR PRN Administration PAIN - Physical Exam Wound/Incisions: positive: Healing well General Appearance: positive: No acute distress Eyes Bilateral: positive: Normal inspection Respiratory: positive: No respiratory distress, Breath sounds nml Cardiovascular: positive: Regular rate & rhythm Abdomen: positive: Other (Appropriately tender to palpation. Wounds dressed. Scattered bowel sounds. Distended) Neurologic/Psychiatric: positive: Oriented x3 Impression/Plan - Problem List Problem List: Ileus following ostomy reversal. Will change IV fluid to NS and continue with full liquids as tolerated. Increase Reglan dose to 10 mg q 6 hours. KUB in the AM
[2019-10-11] MEDS: SODIUM CHLORIDE 0.9% 1,000 ML IV SCH ×2 (08:57→21:20)
--- NOTE | 2019-10-11 10:54 | XRAY Report ---
PROCEDURE: Abdomen 2 View X-Ray INDICATIONS: Ileus following ostomy reversal TECHNIQUE: 2 views of the abdomen were acquired. COMPARISON: Correlation is made with abdomen pelvis CT 06/03/2019 FINDINGS: Surgical changes and devices: Postoperative skin azeem are seen. Bowel: There is gaseous prominence of the colon measuring 5.8 cm. Prominent gas-filled loops of small bowel are also seen that measure up to 4 cm. Soft tissues: No masses; visualized solid organ contours appear normal in size. No suspicious abdom inal calcifications. Bones: No suspicious bony abnormalities. Age-appropriate degenerative changes are seen. IMPRESSION: Gaseous prominence of the small bowel and the colon, which is consistent with the given history of postoperative ileus. Short-term follow-up is recommended. Reviewed by: Ishan Majano MD on 10/11/2019 9:53 AM FORREST Approved by: Ishan Majano MD on 10/11/2019 9:53 AM FORREST Station ID: [id number]
[2019-10-11] MEDS: diphenhydrAMINE 25 MG CAPSULE PO PRN ×2 (12:14→19:37)
[2019-10-11] MEDS: MAG HYDROX/AL HYDROX/SIMETH 30 ML UDC PO PRN (12:14)
[2019-10-11] MEDS: traMADol 50 MG TABLET PO PRN (19:36)
[2019-10-11] MEDS: TERAZOSIN 1 MG CAPSULE PO SCH (21:15)
[2019-10-11] MEDS: GABAPENTIN 300 MG CAPSULE PO SCH (21:15)
[2019-10-11] MEDS: ATORVASTATIN 10 MG TABLET PO SCH (21:15)
[2019-10-12] MEDS: ACETAMINOPHEN 325 MG TABLET PO SCH ×6 (03:07→23:08)
[2019-10-12] MEDS: METOCLOPRAMIDE 10 MG/2 ML VIAL IVP SCH ×4 (06:04→23:34)
[2019-10-12] MEDS: SODIUM CHLORIDE FLUSH 0.9% 10 ML SYRINGE IVP PRN ×3 (06:06→11:31)
[2019-10-12] MEDS: PANTOPRAZOLE 40 MG TABLET PO SCH (06:10)
[2019-10-12] MEDS ORDERED: polyethylene glycoL 3350 17 GM PACKET PO PRN (08:01)
--- NOTE | 2019-10-12 08:12 | PROVIDER PROGRESS NOTE ---
Subjective - General Admit Date: 10/06/19 Procedure Date: 10/06/19 Post Op Days: 6 Procedure Performed: Ostomy reversal - Review of Systems Wound/Incisions: positive: Healing well, No drainage Drain Type: NOne General: positive: No symptoms HEENT: positive: No symptoms Pulmonary: positive: No symptoms Cardiovascular: positive: No symptoms Gastrointestinal: positive: Other (Multiple bowel movements yesterday and passing flatus). negative: Nausea, Vomiting, Abdominal pain Genitourinary: positive: No symptoms Musculoskeletal: positive: No symptoms Skin: positive: No symptoms - Other Other Information/Narrative: Much improved today and would like to try to advance his diet. Reports he had multiple bowel movements yesterday and is passing flatus. Denies any abdominal pain. Objective - Patient Data Reviewed Vital Signs: Yes Vital Signs: Vital Signs x48h Temp Pulse Resp BP Pulse Ox 10/12/19 06:05 37.0 C 82 16 158/76 H 94 Intake & Output: Intake and Output Totals x24h 10/10/19 10/11/19 10/12/19 23:59 23:59 23:59 Intake Total 2841 2138.75 Output Total 650 950 600 Balance 2191 1188.75 -600 - Lab Results Lab Results: 10/11/19 06:15 10/11/19 06:15 - Current Medications Current Medications: Current Medications Generic Name Dose Route Start Last Admin Trade Name Freq PRN Reason Stop Dose Admin Acetaminophen 650 mg 10/10/19 03:00 10/12/19 06:04 Tylenol PO 650 mg Q4H CHRISTIAN Administration Al Hydroxide/Mg Hydroxide 30 ml 10/09/19 12:47 10/11/19 12:14 Mylanta Plus PO 30 ml Q4HR PRN Administration INDIGESTION Atorvastatin Calcium 5 mg 10/07/19 21:00 10/11/19 21:15 Lipitor PO 5 mg QPM CHRISTIAN Administration Diphenhydramine HCl 25 mg 10/08/19 10:56 10/11/19 19:37 Benadryl PO 25 mg Q4HR PRN Administration Allergy Symptoms Gabapentin 300 mg 10/07/19 21:00 10/11/19 21:15 Neurontin PO 300 mg QPM CHRISTIAN Administration Heparin Sodium (Porcine) 5,000 unit 10/07/19 09:00 10/11/19 21:12 SUBQ 5,000 unit BID CHRISTIAN Administration Ropivacaine 200 mg in 100 mls @ 0 mls/hr 10/06/19 12:36 10/08/19 09:55 Naropin 0.2% EP 7 mls/hr PRN PRN Administration PAIN Protocol Per Protocol Sodium Chloride 1,000 mls @ 75 mls/hr 10/11/19 09:00 10/11/19 21:20 Normal Saline 0.9% IV 75 mls/hr .[id number] CHRISTIAN Administration Metoclopramide HCl 10 mg 10/11/19 12:00 10/12/19 06:04 Reglan Inj IVP 10 mg Q6HR CHRISTIAN Administration Ondansetron HCl 4 mg 10/06/19 08:10 10/09/19 13:45 Zofran Inj IVP 4 mg Q6HR PRN Administration Nausea / Vomiting Pantoprazole Sodium 40 mg 10/08/19 07:00 10/12/19 06:10 Protonix PO 40 mg QDAC CHRISTIAN Administration Sodium Chloride 10 ml 10/10/19 01:06 10/11/19 18:02 Normal Saline Flush 0.9% IVP 10 ml PRN PRN Administration NEEDED PER PROVIDER ORDERS Terazosin HCl 5 mg 10/07/19 21:00 10/11/19 21:15 Hytrin PO 5 mg QPM CHRISTIAN Administration Tramadol HCl 50 mg 10/08/19 20:26 10/11/19 19:36 Ultram PO 50 mg Q4HR PRN Administration PAIN - Physical Exam Wound/Incisions: positive: Healing well, No drainage General Appearance: positive: No acute distress, Alert Eyes Bilateral: positive: Normal inspection, PERRL, EOMI Neck: positive: Nml inspection, No JVD Respiratory: positive: No respiratory distress, Breath sounds nml Cardiovascular: positive: Regular rate & rhythm Abdomen: positive: Nml bowel sounds, Tenderness (Minimally and appropriately tender to palpation) Impression/Plan - Problem List Problem List: Ileus is resolving. 1. Hep lock IV 2. Advance diet. 3. Continue ambulation
[2019-10-12] MEDS: HEPARIN 5,000 UNIT/ML VIAL SUBQ SCH ×2 (09:07→21:31)
[2019-10-12] MEDS: diphenhydrAMINE 25 MG CAPSULE PO PRN ×2 (11:34→19:40)
[2019-10-12] MEDS: ATORVASTATIN 10 MG TABLET PO SCH (21:33)
[2019-10-12] MEDS: GABAPENTIN 300 MG CAPSULE PO SCH (21:33)
[2019-10-12] MEDS: TERAZOSIN 1 MG CAPSULE PO SCH (21:33)
[2019-10-13] MEDS: ACETAMINOPHEN 325 MG TABLET PO SCH ×2 (03:04→06:36)
[2019-10-13] MEDS: METOCLOPRAMIDE 10 MG/2 ML VIAL IVP SCH (06:35)
[2019-10-13] MEDS: PANTOPRAZOLE 40 MG TABLET PO SCH (06:35)
[2019-10-13 08:15] VITALS: BP 152/81
[2019-10-13] MEDS: HEPARIN 5,000 UNIT/ML VIAL SUBQ SCH (08:51)
--- NOTE | 2019-10-13 09:02 | PROVIDER PROGRESS NOTE ---
Subjective - Prog Note Date Prog Note Date: 10/13/19 - Subjective Pt reports feeling: Improved (feeling well. no nausea. would like to go home) Objective - Vital Signs/Intake & Output Vital Signs: Vital Signs x48h Temp Pulse Resp BP Pulse Ox 10/13/19 08:14 36.8 C 82 14 152/81 H 93 10/13/19 03:27 37.0 C 81 16 162/71 H 93 Intake & Output: Intake & Output 10/10/19 10/11/19 10/12/19 10/13/19 23:59 23:59 23:59 23:59 Intake Total 2841 2138.75 2625 Output Total 776 373 9845 800 Balance 2191 1188.75 1255 -800 - Objective General Appearance: positive: No acute distress, Alert Eyes Bilateral: positive: Normal inspection Neck: positive: No JVD Respiratory: positive: No respiratory distress Abdomen: positive: Non-tender, No distention, Other (incisions healing nicely) Neurologic/Psychiatric: positive: Oriented x3 - Lab Results Fish Bones: 10/11/19 06:15 10/11/19 06:15 Assessment/Plan - Problem List (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
--- NOTE | 2019-10-13 09:05 | DISCHARGE SUMMARY ---
"Discharge Summary Admit Date: 10/06/19 Discharge Date: 10/13/19 Code Status: Attempt Resuscitation Condition at Discharge: Good Discharge Disposition: 01 Home, Self Care - DIAGNOSES Admission Diagnoses: history colectomy and colostomy Discharge Diagnoses with Status of Each Condition: colostomy closure. unremarkable hospital course. home in good condition 10/13/2019 - HPI History of Present Illness: history of sigmoid volvulus requiring colectomy and colostomy - CONSULTS | PROCEDURES Consultations: none Procedures: colostomy closure/ take down - HOSPITAL COURSE Hospital Course: unremarkable postop course. home 10/13/2019 tolerating diet and having bms. Normal abdominal exam. - ALLERGIES Allergies/Adverse Reactions: Allergies Allergy/AdvReac Type Severity Reaction Status Date / Time soap Allergy Rash Verified 10/02/19 13:02 - MEDICATIONS Home Medications: Ambulatory Orders Medication Instructions Recorded Confirmed Alendronate [Fosamax] 70 mg PO Q7D 06/03/19 10/02/19 Aspirin Chewable [St Ravi 81 mg PO BID 06/03/19 10/02/19 Aspirin] Gabapentin 300 mg PO BID 06/03/19 10/02/19 Omeprazole 20 mg PO DAILY 06/03/19 10/02/19 Simvastatin [Zocor] 10 mg PO QPM 06/03/19 10/02/19 Terazosin HCl 5 mg PO BID 06/03/19 10/02/19 Docusate Sodium 250Mg Capsule 250 mg PO BID #60 capsule 06/09/19 10/02/19 [Colace 250Mg Capsule] Calcium Carbonate/Vitamin D3 1 each PO DAILY 10/02/19 10/02/19 [Calcium 500 mg-Vit D3 600 Unit] Cholecalciferol (Vitamin D3) 1,000 unit PO DAILY 10/02/19 10/02/19 [Vitamin D3] Lactobacillus Acidophilus 1 each PO DAILY 10/02/19 10/02/19 [Probiotic Acidophilus] - PHYSICAL EXAM AT DISCHARGE General Appearance: positive: No acute distress, Alert Respiratory: positive: No respiratory distress Abdomen: positive: Non-tender, Other (incisions healing well) Neurologic/Psychiatric: positive: Oriented x3 - LABS Result Diagrams: 10/11/19 06:15 10/11/19 06:15 - QUALITY (Female Hip Fx Only) Was patient sent home on osteoporosis medication?: No (he should resume all of his regular medication) - FOLLOW UP Follow Up: office 10/15/2019. already has an appointment"
--- NOTE | 2019-10-13 10:49 | Discharge Plan ---
Discharge Plan Problem Reviewed?: Yes Disposition: Home, Self Care Condition: Good Diet: Regular Activity Restrictions: No Restrictions Shower Restrictions: No Driving Restrictions: Yes No Smoking: If you smoke, Please STOP! Call for help. Follow-up with: Naatliia Cornejo ARNP [Primary Care Provider] -
== END 2019-10-13 11:20 | disposition home or self-care (01) | DRG 330 ==
LOC: MS2 06:23
PROVIDERS: ADMIT Surgery; ATTEND Surgery
PROC: 0DBN0ZZ Excision of Sigmoid Colon, Open Approach (ICD-10-PCS; principal; 2019-10-06 07:30)
DX: Z43.3 Encounter for attention to colostomy (principal); K56.7 Ileus, unspecified; R33.9 Retention of urine, unspecified; Z90.49 Acquired absence of other specified parts of digestive tract; Z87.19 Personal history of other diseases of the digestive system; Z85.46 Personal history of malignant neoplasm of prostate; Z79.82 Long term (current) use of aspirin; Z79.899 Other long term (current) drug therapy
CPT/HCPCS: 36415; 74019; 80053; 85025; A9270; J0131; J1170; J2765; J7120